=== PATIENT | male | born 1940 | race Caucasian/White ===

== ENCOUNTER 2017-02-06 08:05 | Emergency (ER) ==
[2017-02-06 08:20] VITALS: BP 132/75; TEMP 99.4; BMI 31.4
[2017-02-06 09:03] LABS: ABG BASE EXCESS -3 (-2.0-2.0); ABG HCO3 21.8 (22.0-26.0); ABG PCO2 36.5 mmHg (35-45); ABG PH 7.385 (7.35-7.45); ABG TCO2 23 (22.0-28.0)
[2017-02-06 09:07] LABS: BASOPHILS % (AUTO) 0.4 % (0.0-3.0); EOSINOPHILS # (AUTO) 0.1 K/ul (0.0-0.7); EOSINOPHILS % (AUTO) 1.1 % (0.0-7.0); HEMATOCRIT 41.4 % (42.0-52.0); HEMOGLOBIN 14.6 g/dl (14.0-18.0); IMMATURE GRANULOCYTE % (AUTO) 0.3 % (0.0-5.0); LYMPHOCYTES # (AUTO) 1.1 K/uL (0.60-3.4); LYMPHOCYTES % (AUTO) 12.3 (10.0-50.0); MEAN CORPUSCULAR HEMOGLOBIN 30.2 pg (27.0-31.0); MEAN CORPUSCULAR HGB CONC 35.3 (31.8-35.4); MEAN CORPUSCULAR VOLUME 85.7 fl (80.0-94.0); MONOCYTES # (AUTO) 0.7 K/uL (0.4-2.0); MONOCYTES % (AUTO) 7.7 (0-10); NEUTROPHILS % (AUTO) 78.2; PLATELET COUNT 179 10^3/uL (140-440); RED BLOOD COUNT 4.83 10^6/ul (4.70-6.10); WHITE BLOOD COUNT 8.92 K/ul (4.2-10.2)
[2017-02-06 09:33] LABS: ALBUMIN 4.2 g/dL (3.4-5.0); ALBUMIN/GLOBULIN RATIO 1.27; ANION GAP 16.8; BILIRUBIN,TOTAL 1.1 mg/dL (0.00-1.20); BUN/CREATININE RATIO 11.81; CALCIUM 9.9 mg/dL (8.2-10.2); CREATININE 1.27 mg/dL (0.60-1.10); POTASSIUM 3.8 mmol/L (3.5-5.1); TOTAL PROTEIN 7.5 g/dL (5.8-8.1); TROPONIN I 0.015 ng/ml (0.0000-0.4000)
--- NOTE | 2017-02-06 09:36 | CT ---
EXAM: CT chest without contrast. HISTORY: Cough, chest pain. COMPARISON: 09/05/2012. TECHNIQUE: Multiple axial images of the chest were obtained without intravenous contrast. Images w ere reformatted in the sagittal and coronal planes. FINDINGS: There has been previous CABG. Heart size is normal. There is no pericardial effusion. Atherosclerotic calcifications present. Evaluation for lymphadenopathy is limited by lack of intrav enous contrast. There is no convincing evidence for lymphadenopathy. Bilateral gynecomastia noted. Mild emphysematous changes present in both lungs. Calcified granulomatous changes are present. No consolidation, pleural effusion or pneumothorax identified. Small hiatal hernia suggested. No acute abnormality identified in the upper abdomen. Degenerative changes present in the spine. IMPRESSION: 1. No acute cardiopulmonary process. 2. Mild emphysema.
[2017-02-06] MEDS ORDERED: DECADRON 4 MG/ML SDV IM STA (09:58)
--- NOTE | 2017-02-06 10:01 | ED.PDOC ---
General ED Provider: Dr. JACQUES HUNG Chief Complaint: Respiratory Complaint Stated Complaint: COUGH Time Seen by Physician: 08:00 Mode of Arrival: Walk-In Information Source: Patient Exam Limitations: No limitations Primary Care Provider: LEONEL MONTGOMERY Nursing and Triage Documentation Reviewed and Agree: Yes Respiratory Complaint Exam - Respiratory Complaint/Exam Symptoms Are: Resolved Timing: Intermittent Initial Severity: Mild Current Severity: None Location: Chest Character: Reports: Non-productive cough Aggravating: Reports: None Associated Signs and Symptoms: Denies: Rapid breathing, Dyspnea, Fever, Chills, Chest pain, Pleuritic chest pain, Wheezing, Hemoptysis, Dizziness, Calf pain, Calf swelling, Edema, URI, Nasal congestion, Hoarseness, Sinus discomfort, Vomiting, Sore throat, Weight loss, Decreased oral intake, Increased thirst, Increased appetite, Increased urination Related History: Reports: Similar episode History of Healthcare-Acquired Pneumonia: No Related Surgical History: Reports: None Pseudomonas Risk Factors: Reports: Chronic Lung Disease Tuberculosis Risk Factors: Reports: Chronic Resp. Faliure Status Asthmaticus Risk Factors: Reports: None Home Oxygen Use: No Recent Stress Test: No Recent Echo/LV Function: No Current Antibiotic Use: No Current Asthma Medication Use: No Respiratory Distress: None Inadequate Respiratory Effort: No Dysphagia Present: No Stridor Present: No JVD Present: No Accessory Muscle Use: No Retractions: Not Present Diminished Breath Sounds: No Sinus Tenderness: None Differential Diagnoses: Pneumonia, Bronchitis Non-Traumatic Chest Pain Syncope: EKG Performed Review of Systems - Review Of Systems Constitutional: Reports: Malaise Eyes: Reports: No symptoms Ears, Nose, Mouth, Throat: Reports: No symptoms Respiratory: Reports: Cough Cardiac: Reports: No symptoms GI: Reports: No symptoms : Reports: No symptoms Musculoskeletal: Reports: No symptoms Skin: Reports: No symptoms Neurological: Reports: No symptoms Endocrine: Reports: No symptoms Hematologic/Lymphatic: Reports: No symptoms All Other Systems: Reviewed and Negative Past Medical History - Past Medical History Previously Healthy: Yes Endocrine: Reports: Hypothyroid, Dyslipidemia Cardiovascular: Reports: None Respiratory: Reports: COPD Hematological: Reports: None Gastrointestinal: Reports: GERD Genitourinary: Reports: None Neuro/Psych: Reports: None Musculoskeletal: Reports: None Cancer: Reports: None - Surgical History General Surgical History: Reports: None - Family History Family History: Reports: None - Social History Smoking Status: Former smoker Hx Substance Use: No Alcohol Screening: None Physical Exam - Physical Exam Appearance: Well-appearing, No pain distress, Well-nourished Eyes: YASMIN, EOMI, Conjunctiva clear ENT: Ears normal, Nose normal, Oropharynx normal Respiratory: Airway patent, Breath sounds clear, Breath sounds equal, Respirations nonlabored Cardiovascular: RRR, Pulses normal, No rub, No murmur GI/: Soft, Nontender, No masses, Bowel sounds normal, No Organomegaly Musculoskeletal: Normal strength, ROM intact, No edema, No calf tenderness Skin: Warm, Dry, Normal color Neurological: Sensation intact, Motor intact, Reflexes intact, Cranial nerves intact, Alert, Oriented Psychiatric: Affect appropriate, Mood appropriate Interpretation - Radiology Interpretation Radiology Interpretation By: Radiologist Radiology Results: No acute changes Exam Interpreted: CT Scan Critical Care Note - Critical Care Note Total Time (mins): 0 Course - Course Hematology/Chemistry: 02/06/17 09:00 02/06/17 09:00 Orders, Labs, Meds: Lab Review 02/06/17 02/06/17 08:38 09:00 WBC 8.92 RBC 4.83 Hgb 14.6 Hct 41.4 L MCV 85.7 MCH 30.2 MCHC 35.3 RDW Coeff of Lewis 12.0 Plt Count 179 Immature Gran % (Auto) 0.3 Neut % (Auto) 78.2 Lymph % (Auto) 12.3 [place] % (Auto) 7.7 Eos % (Auto) 1.1 Baso % (Auto) 0.4 Immature Gran # (Auto) 0.0 Neut # 7.0 H Lymph # 1.1 [place] # 0.7 Eos # 0.1 Baso # 0.0 Puncture Site Rb O2 Saturation 95.0 ABG pH 7.385 ABG pCO2 36.5 ABG pO2 77.0 L ABG HCO3 21.8 L ABG Total CO2 23 ABG Base Excess -3 L FiO2 % 21.0 Sodium 141 Potassium 3.8 Chloride 106 Carbon Dioxide 22 L Anion Gap 16.8 BUN 15 Creatinine 1.27 H Estimated GFR (MDRD) 55.00 BUN/Creatinine Ratio 11.81 Glucose 105 Lactic Acid 13.1 Calcium 9.9 Total Bilirubin 1.10 AST 22 ALT 33 Alkaline Phosphatase 39 L Total Creatine Kinase 51 Troponin I 0.0150 Total Protein 7.5 Albumin 4.2 Globulin 3.3 Albumin/Globulin Ratio 1.27 Procalcitonin < 0.05 Orders Category Date Time Status ABG DRAW REQUEST Stat CARDIO 02/06/17 08:38 Completed EKG-(ED ONLY) Stat CARDIO 02/06/17 08:37 Completed ABG Stat LAB 02/06/17 08:38 Completed BLOOD CULTURE Stat LAB 02/06/17 09:00 Received CBC W/ AUTO DIFF Stat LAB 02/06/17 09:00 Completed COMPREHENSIVE METABOLIC PANEL Stat LAB 02/06/17 09:00 Completed CREATINE KINASE Stat LAB 02/06/17 09:00 Completed LACTIC ACID Stat LAB 02/06/17 09:00 Completed PROCALCITONIN Stat LAB 02/06/17 09:00 Completed TROPONIN I Stat LAB 02/06/17 09:00 Completed Dexamethasone 4 mg/ml Inj [Decadron 4 mg/ml Sdv] MEDS 02/06/17 09:58 Stat 4 mg IM ONCE STA CT CHEST W/O CONTRAST Stat RADS 02/06/17 08:37 Completed Medications Generic Name Dose Route Start Last Admin Trade Name Freq PRN Reason Stop Dose Admin Dexamethasone Sodium Phosphate 4 mg 02/06/17 09:58 Decadron 4 Mg/Ml Sdv IM 02/06/17 09:59 ONCE STA Vital Signs: Temp Pulse Resp BP Pulse Ox 02/06/17 08:06 99.4 F 70 20 132/75 93 L Departure - Departure Time of Disposition: 10:00 Disposition: HOME SELF-CARE Discharge Problem: Cough Instructions: Chronic Cough (ED) Condition: Good Pt referred to PMD for follow-up: Yes Additional Instructions: Please call your Family Physician as soon as possible to schedule a follow-up appointment. Allergies/Adverse Reactions: Allergies No Known Allergies Allergy (Verified 02/06/17 08:16) Home Medications: Ambulatory Orders Amlodipine Besylate [Norvasc] 10 mg PO BEDTIME 05/13/15 Docusate Sodium [Stool Softener] 100 mg PO DIRECTED PRN 05/13/15 Fenofibrate 160 mg PO DAILY 05/13/15 Ferrous Sulfate [Iron] 325 mg PO BID 05/13/15 Hydrocodone/Acetaminophen [Hydrocodon-Acetaminoph 7.5-325] 1 tab PO TID PRN 03/18 Levothyroxine Sodium [Synthroid] 75 mcg PO QDAC 05/13/15 Lorazepam [Ativan] 1 mg PO BEDTIME 05/13/15 Lysine HCl [l-Lysine] 500 mg PO BID 05/13/15 Metoprolol Tartrate [Lopressor] 100 mg PO BID 05/13/15 [place]-3 Fatty Acids/Fish Oil [Fish Oil 1,000 mg Capsule] 2,000 mg PO BID Tamsulosin HCl [Flomax] 0.4 mg PO BEDTIME 05/13/15 Ezetimibe [Zetia] 1 tab PO EVERY OTHER DAY 05/14/15 Aspirin 81 mg PO DAILY #30 tab-cap 04/14/16 Vitamin E Mixed [Vitamin E] 400 unit PO DAILY tab-cap 04/14/16 Atorvastatin Calcium [Lipitor] 40 mg PO DAILY 02/06/17 Nitroglycerin [Nitrostat] 0.4 mg SL Q5MIN X 3 DOSES PRN 02/06/17
== END 2017-02-06 10:15 | disposition home or self-care (01) ==
LOC: ED 08:05
DX: R05 Cough (principal); E78.5 Hyperlipidemia, unspecified; E03.9 Hypothyroidism, unspecified; J44.9 Chronic obstructive pulmonary disease, unspecified; K21.9 Gastro-esophageal reflux disease without esophagitis; Z79.899 Other long term (current) drug therapy
CPT/HCPCS: 36415; 80053; 82550; 82803; 83605; 84145; 84484; 85025; 87040; 93005; 93010; 96372; 99283

== ENCOUNTER 2017-03-30 08:52 | Outpatient (CLI) ==
--- NOTE | 2017-03-30 10:29 | DI ---
EXAM: Double contrast esophagram. History: Dysphagia. Technique: Patient was given the gas crystals. Patient was then given oral barium and multiple spot films of the esophagus and gastroesophageal junction were obtained in various projections. Findings: The caliber of the esophagus is within normal limits. No mucosal lesions or filling defects identifi ed. Diffuse irregular esophageal contractions were identified which did cause holdup of the contrast material. No hiatal hernia identified. Gastroesophageal reflux was seen. Impression: 1. Diffuse esophageal spasm. 2. Gastroesophageal reflux.
== END 2017-03-30 08:53 | disposition home or self-care (01) ==
LOC: RAD 08:52
PROVIDERS: ATTEND Nurse Practitioner Family
DX: R13.10 Dysphagia, unspecified (principal)

== ENCOUNTER 2017-04-24 07:37 | Day surgery (SDC) ==
[2017-04-24] MEDS ORDERED: VERSED ONE (09:17)
[2017-04-24] MEDS ORDERED: LIDOCAINE HCL 2% LUER-JET ONE (09:17)
[2017-04-24] MEDS ORDERED: DIPRIVAN 20 ML VIAL IVP ONE (09:17)
[2017-04-24 10:24] VITALS: BP 136/75; TEMP 98.1
--- NOTE | 2017-04-24 15:31 | OP ---
INDICATIONS FOR PROCEDURE: 76-year-old gentleman presents for endoscopy and colonoscopy exam. He has intermittent dysphagia, states mostly to liquids. He also has history of adenomatous polyps with his last colonoscopy three years ago. He presents for endoscopy and colonoscopy exam. MEDICATIONS: SEE ANESTHESIA NOTES. PROCEDURE: 1. ENDOSCOPY, MONEGASQUE DILATATION 2. COLONOSCOPY, SNARE POLYPECTOMY REPORT: The risks, benefits, alternatives and limitations were discussed in detail with the patient. Informed consent was obtained. After adequate sedation was achieved, the video endoscope was introduced in the posterior pharynx and esophagus under direct vision and easily advanced down to the second portion of the duodenum. I then slowly withdrew. The duodenal mucosa appeared unremarkable as did the duodenal bulb. The antrum and body were relatively unremarkable. The scope was retroflexed to look at the cardia and fundus which was unremarkable. The scope was anteflexed and withdrawn back through the esophagus and this appeared normal. I advanced the scope back down the gastric lumen and placed the guidewire and withdrew the scope. Over the guidewire, I easily passed a 54 Greek Latvian dilator. The patient tolerated the procedure well with stable vital signs and pulse oximetry throughout. The patient's bed was turned. Digital rectal exam revealed good tone, no masses. The colonoscope was introduced into the rectum and advanced under direct visual guidance to the cecum. The cecum was identified by the appendiceal orifice and IC valve. I then slowly withdrew the scope in a circumferential manner examining the mucosa quite carefully. I looked on the proximal and distal side of folds and flexures as best as possible. I was able to retroflex the scope in the right colon and left colon to increase visualization. In the ascending colon there was a 5 mm sessile polyp. I removed this by snare technique. In the descending area there was a diminutive 4 mm polyp that I destroyed using a snare. There were multiple large and small mouth diverticula scattered throughout the descending and sigmoid colon. On retroflex view of the anal canal there were small internal hemorrhoids. No other abnormalities were noted. The prep was adequate. There was a little bit of retained stool from the diverticulosis scattered throughout but this was washed and suctioned away as best as possible. The withdrawal time was 9 minutes and 2 seconds. The patient tolerated the procedure well with stable vital signs and pulse oximetry throughout. IMPRESSION: 1. NORMAL UPPER ENDOSCOPY EXAM 2. SUCCESSFUL PASSIVE DILATATION OF THE ESOPHAGUS 3. TWO (2) COLON POLYPS REMOVED OR DESTROYED ABOVE 4. COLONIC DIVERTICULOSIS 5. SMALL INTERNAL HEMORRHOIDS RECOMMENDATIONS: 1. Strict reflux precautions. 2. I advised him to make sure he cuts and chews his food well, avoid excessively hot or cold liquids. 3. Await colon polyp pathology, if it is benign as expected, I recommend repeat colonoscopy examination again in 5 years, sooner if signs or symptoms would indicate otherwise. 4. Next, will see back in the office as needed. CC: DR. VALENTINA TORRES
== END 2017-04-24 10:43 | disposition home or self-care (01) ==
LOC: SURG 07:37
PROVIDERS: ATTEND Internal Medicine Gastroenterology
DX: Z09 Encounter for follow-up examination after completed treatment for conditions other than malignant neoplasm (principal); Z86.010 Personal history of colon polyps; D12.2 Benign neoplasm of ascending colon; K63.5 Polyp of colon; K57.30 Diverticulosis of large intestine without perforation or abscess without bleeding; R13.19 Other dysphagia; K64.8 Other hemorrhoids

== ENCOUNTER 2017-08-20 15:09 | Inpatient (IN) ==
[2017-08-20] MEDS ORDERED: NITROSTAT SL PRN ×2 (15:36→16:07)
[2017-08-20] MEDS ORDERED: ATROPINE SULFATE PFS IVP PRN (15:36)
[2017-08-20] MEDS ORDERED: TYLENOL PO PRN (15:36)
[2017-08-20] MEDS ORDERED: VISTARIL INJ IM PRN (15:36)
[2017-08-20] MEDS ORDERED: MORPHINE 4 MG/ML VIAL IVP PRN (15:36)
[2017-08-20 16:02] VITALS: BMI 30.4
[2017-08-20] MEDS: ROCEPHIN 1 GM in SODIUM CHLORIDE 50 ML IV SCH (16:14)
[2017-08-20] MEDS: TUSSIONEX PO SCH ×2 (16:15→21:24)
[2017-08-20] MEDS: SOLU-CORTEF 250 MG IVP SCH ×2 (16:15→21:21)
[2017-08-20] MEDS: ZITHROMAX PO SCH (16:15)
--- NOTE | 2017-08-20 16:23 | DI ---
EXAM: Single view of the chest. History: Cough. Comparison: Chest radiograph 05/25/2016 Findings: Heart size is upper limits of normal. Sternotomy wires. Atherosclerotic vascular calcifi cations. No focal consolidation. No appreciable pleural fluid and no pneumothorax. No acute osseou s abnormalities. Impression: No acute cardiopulmonary process
[2017-08-20] MEDS: PULMICORT 0.5 MG/2 ML NEB SCH (16:51)
[2017-08-20] MEDS: XOPENEX 1.25 MG NEB SCH ×2 (16:55→23:22)
[2017-08-20] MEDS ORDERED: FATTY ACIDS PO SCH (21:00)
[2017-08-20] MEDS ORDERED: NON-FORMULARY MEDICATION (Ferrous Sulfate [Iron] 325 MG) PO SCH (21:00)
[2017-08-20] MEDS ORDERED: NON-FORMULARY MEDICATION (Metoprolol Tartrate [Lopressor] 100 MG) PO SCH (21:00)
[2017-08-20] MEDS ORDERED: NON-FORMULARY MEDICATION (Amlodipine Besylate [Norvasc] 10 MG) PO SCH (21:00)
[2017-08-20] MEDS ORDERED: OMEGA PO SCH (21:00)
[2017-08-20] MEDS ORDERED: [UNRECOGNIZED DRUG - OTHER] PO SCH (21:00)
[2017-08-20] MEDS ORDERED: FISH OIL PO SCH (21:00)
[2017-08-20] MEDS: FLOMAX PO SCH (21:21)
[2017-08-20] MEDS: OMEGA-3 FISH OIL PO SCH (21:21)
[2017-08-20] MEDS: ATIVAN PO SCH (21:23)
[2017-08-20] MEDS: NORVASC PO SCH (21:24)
[2017-08-20] MEDS: FERROUS SULFATE PO SCH (21:24)
[2017-08-20] MEDS: LOPRESSOR PO SCH (21:24)
[2017-08-20] MEDS: LYSINE HCL 500 MG PO SCH (21:24)
[2017-08-21] MEDS: NORCO 7.5-325 PO PRN ×2 (03:10→21:27)
[2017-08-21] MEDS: PULMICORT 0.5 MG/2 ML NEB SCH ×2 (05:15→17:02)
[2017-08-21] MEDS: XOPENEX 1.25 MG NEB SCH ×4 (05:15→22:45)
[2017-08-21] MEDS: SYNTHROID PO SCH (05:54)
[2017-08-21] MEDS: SOLU-CORTEF 250 MG IVP SCH ×3 (06:00→20:11)
[2017-08-21] MEDS ORDERED: ASPIRIN CHEWABLE PO SCH (08:00)
[2017-08-21] MEDS ORDERED: VITAMIN E MIXED 400 UNIT PO SCH (09:00)
[2017-08-21] MEDS ORDERED: NON-FORMULARY MEDICATION (Atorvastatin Calcium [Lipitor] 40 MG) PO SCH (09:00)
[2017-08-21] MEDS: ASPIRIN EC PO SCH (09:33)
[2017-08-21] MEDS: ROCEPHIN 1 GM in SODIUM CHLORIDE 50 ML IV SCH (09:33)
[2017-08-21] MEDS: LOPRESSOR PO SCH ×2 (09:34→21:27)
[2017-08-21] MEDS: FERROUS SULFATE PO SCH ×2 (09:34→21:27)
[2017-08-21] MEDS: LIPITOR PO SCH (09:34)
[2017-08-21] MEDS: ZITHROMAX PO SCH (09:35)
[2017-08-21] MEDS: OMEGA-3 FISH OIL PO SCH ×2 (09:35→21:27)
[2017-08-21] MEDS: VITAMIN E PO SCH (09:35)
[2017-08-21] MEDS: TRIGLIDE PO SCH (09:35)
[2017-08-21] MEDS: TUSSIONEX PO SCH ×2 (09:35→21:27)
[2017-08-21] MEDS: LYSINE HCL 500 MG PO SCH ×2 (09:46→21:28)
[2017-08-21] MEDS: FLOMAX PO SCH (21:27)
[2017-08-21] MEDS: NORVASC PO SCH (21:27)
[2017-08-21] MEDS: ATIVAN PO SCH (21:27)
[2017-08-22] MEDS: PULMICORT 0.5 MG/2 ML NEB SCH (05:12)
[2017-08-22] MEDS: XOPENEX 1.25 MG NEB SCH ×2 (05:12→11:10)
[2017-08-22] MEDS ORDERED: SYNTHROID ONE (05:12)
[2017-08-22] MEDS: SYNTHROID PO SCH (06:49)
[2017-08-22] MEDS: SOLU-CORTEF 250 MG IVP SCH (06:49)
[2017-08-22] MEDS: NORCO 7.5-325 PO PRN (08:00)
[2017-08-22] MEDS: ZITHROMAX PO SCH (08:01)
[2017-08-22] MEDS: OMEGA-3 FISH OIL PO SCH (08:02)
[2017-08-22] MEDS: TRIGLIDE PO SCH (08:02)
[2017-08-22] MEDS: LIPITOR PO SCH (08:02)
[2017-08-22] MEDS: FERROUS SULFATE PO SCH (08:02)
[2017-08-22] MEDS: VITAMIN E PO SCH (08:02)
[2017-08-22] MEDS: ASPIRIN EC PO SCH (08:02)
[2017-08-22] MEDS: LOPRESSOR PO SCH (08:03)
[2017-08-22] MEDS: TUSSIONEX PO SCH (08:04)
[2017-08-22] MEDS ORDERED: ZETIA PO SCH (09:00)
[2017-08-22 10:15] VITALS: BP 142/75; TEMP 97.6
[2017-08-22] MEDS: ROCEPHIN 1 GM in SODIUM CHLORIDE 50 ML IV SCH (10:19)
[2017-08-22] MEDS: LYSINE HCL 500 MG PO SCH (10:28)
--- NOTE | 2017-08-22 11:26 | DS ---
DATE OF SERVICE: 08/22/17 FINAL DIAGNOSIS: 1. ACUTE ASTHMATIC BRONCHITIS 2. COPD 3. PLEURITIC PAIN 4. HYPOTHYROID 5. HYPERTENSION 6. CAD 7. DYSLIPIDEMIA 8. CKD, STAGE 3 9. DJD 10. PROSTATE CANCER 11. ENDOSCOPY WITH DILATATION, APR 2017 12. COLONOSCOPY WITH POLYPS REMOVED, APR 2017 13. CABG, 2000 14. TOTAL KNEE REPLACEMENT, RIGHT DISCHARGE VITAL SIGNS: Temperature 97.6, pulse 59, respiratory rate 16, BP 142/75, pulse ox 98% DISCHARGE INSTRUCTIONS: Followup appointment: Dr. Dobbins on August 28, 2017 at 11:30 a.m. MEDICATIONS AT DISCHARGE: [place] 7.5-325 one tab p.o. t.i.d. p.r.n. Norvasc 10 mg p.o. bedtime VINNIE Aspirin 81 mg p.o. daily with meal VINNIE Lipitor 40 mg p.o. daily VINNIE Zetia 10 mg p.o. every other day VINNIE Triglide 160 mg p.o. daily VINNIE Ferrous Sulfate 324 mg p.o. b.i.d. VINNIE [place] 3 Fish Oil 2000 mg p.o. b.i.d. VINNIE Synthroid 75 mcg p.o. q.d. a.c. VINNIE Ativan 1 mg p.o. bedtime VINNIE Lopressor 100 mg p.o. b.i.d. VINNIE Lysine 500 mg p.o. b.i.d. VINNIE Fosamax 0.8 mg p.o. bedtime VINNIE Vitamin E 400 unit p.o. daily VINNIE Nitrostat 0.4 mg SL q.5 min times three doses p.r.n. Keflex 500 mg p.o. b.i.d. for 10 days Prednisone 10 mg daily for 10 day, oral with food NEW PRESCRIPTIONS: Keflex 500 mg b.i.d. for 10 days Prednisone 10 mg daily for 10 days MEDICATIONS DISCONTINUED: None DIET INSTRUCTIONS: Regular as tolerated ACTIVITY: Gradually resume as tolerated SMOKING: N/A DISEASE SPECIFIC EDUCATION: Bronchitis Medications Appointment HOSPITAL COURSE: This 77-year-old White/ male was hospitalized with acute asthmatic bronchitis treated with Zithromax and Rocephin. Pleuritic pain has subsided. Lungs on auscultation have good air entry. The patient still has hoarseness and sinus drainage. Cardiovascular status is stable. No evidence of CHF. Condition at the time of discharge is stable. The patient will be discharged on antibiotics and steroids. LABS: 08/22/17 04:35: Sodium 141, Potassium 4.0, Chloride 107, Carbon Dioxide 25, Anion Gap 13.0, BUN 22 H, Creatinine 1.06, Estimated GFR (MDRD) 68.00, BUN/ Creatinine Ratio 20.75, Glucose 124 H, Calcium 9.0, Total Bilirubin 0.5, AST 15 , ALT 31, Alkaline Phosphatase 31 L, Total Protein 5.8, Albumin 3.2 L, Globulin 2.6, Albumin/Globulin Ratio 1.23 08/22/17 04:35: WBC 8.27, RBC 4.46 L, Hgb 13.5 L, Hct 38.5 L, MCV 86.3, MCH 30.3 , MCHC 35.1, RDW Coeff of [place] 12.0, Plt Count 169, Immature Gran % (Auto) 3.3, Neut % (Auto) 76.3, Lymph % (Auto) 14.4, [place] % (Auto) 5.9, Eos % (Auto) 0.0, Baso % (Auto) 0.1, Immature Gran # (Auto) 0.3, Neut # (Auto) 6.3, Lymph # (Auto ) 1.2, [place] # (Auto) 0.5, Eos # (Auto) 0.0, Baso # (Auto) 0.0 TIME SPENT: More than 60 minutes. MTDD
--- NOTE | 2017-08-22 11:28 | PN ---
CODING FOR BILLING 08/20/17 LEVEL 5 08/21/17 INTERMEDIATE 08/22/17 DISCHARGE MTDD
--- NOTE | 2017-08-22 13:08 | PCM.PROG ---
Attending Provider: ATTENDING PROVIDER: Dr. LEONEL MONTGOMERY DATE OF SERVICE: 08/22/17 SUBJECTIVE: This 77 year old WHITE/ M was hospitalized 08/20/17 with acute asthmatic bronchitis and COPD. Condition improved. No pleuritic pain. Cardiovascular status is stable. The patient still has sinus drainage, hoarseness of voice but overall improved. REVIEW OF SYSTEMS: CONSTITUTIONAL: No night sweats. No fatigue, malaise, lethargy. No fever or chills. HEENT: Eyes: No visual changes. No eye pain. No eye discharge. ENT: No runny nose. No epistaxis. No sinus pain. No odynophagia. No congestion. RESPIRATORY: No cough, no congestion. No hemoptysis. No shortness of breath. CARDIOVASCULAR: No angina symptoms. No CHF symptoms. No atypical chest pain for CAD. No palpitations. No orthopnea.. GASTROINTESTINAL: No abdominal pain. No nausea or vomiting. No diarrhea or constipation. No hematemesis. No hematochezia. GENITOURINARY: No urgency. No frequency. No dysuria. No hematuria. No obstructive symptoms. No discharge. No pain. No significant abnormal bleeding. MUSCULOSKELETAL: No musculoskeletal pain; no joint swelling. NEUROLOGICAL: Awake, alert, oriented to time, place and person. No headache. No neck pain. No syncope. No seizures. No dizziness. PSYCHIATRIC: Not anxious. No depression. No suicidal thoughts. No homicidal thoughts. SKIN: No rash. No lesions. No wounds. ENDOCRINE: No unexplained weight loss. No weight gain. HEMATOLOGIC/LYMPHATIC: No anemia. No purpura. No petechiae. No prolonged or excessive bleeding. No palpable lymph nodes. PHYSICAL EXAMINATION: GENERAL: The patient is awake, alert and oriented, lying/sitting in bed in no distress. VITAL SIGNS: Temperature 98.3 F, Pulse 59, Respiratory Rate 18, BP 133/72, Pulse Ox 97% HEENT: Head normocephalic, atraumatic. Eyes: Extraocular muscles are intact. Pupils are equal, round and reactive to light and accommodation. Ears: No lesions. Nose appeared normal. Throat: No exudate or erythema. NECK: Supple. No JVD, no carotid bruit. No lymphadenopathy or thyromegaly. LUNGS: Decreased breath sounds. Clear to auscultation. Percussion note normal. Chest symmetrical. HEART: S1, S2, no S3. No murmurs. No cyanosis or clubbing. No ascites. Pulses: Dorsalis pedis and posterior tibial pulses +1 to +2 both sides. ABDOMEN: Soft. Non-tender. Bowel sounds active. No CVA tenderness. No mass felt. EXTREMITIES: No edema. Full range of motion of all extremities, equal. NEUROLOGIC: No focal deficit. Cranial nerves II through XII are grossly intact. No headache, no double vision or headache. SKIN: Warm and dry. Intact. Turgor-normal. LYMPHATIC: No palpable lymph nodes/no lymphedema. MUSCULOSKELETAL: Normal joints with no swelling. Muscle tone is normal. LAB REVIEW: 08/22/17 04:35 08/22/17 04:35 08/22/17 04:35: Sodium 141, Potassium 4.0, Chloride 107, Carbon Dioxide 25, Anion Gap 13.0, BUN 22 H, Creatinine 1.06, Estimated GFR (MDRD) 68.00, BUN/ Creatinine Ratio 20.75, Glucose 124 H, Calcium 9.0, Total Bilirubin 0.5, AST 15 , ALT 31, Alkaline Phosphatase 31 L, Total Protein 5.8, Albumin 3.2 L, Globulin 2.6, Albumin/Globulin Ratio 1.23 08/22/17 04:35: WBC 8.27, RBC 4.46 L, Hgb 13.5 L, Hct 38.5 L, MCV 86.3, MCH 30.3 , MCHC 35.1, RDW Coeff of [place] 12.0, Plt Count 169, Immature Gran % (Auto) 3.3, Neut % (Auto) 76.3, Lymph % (Auto) 14.4, [place] % (Auto) 5.9, Eos % (Auto) 0.0, Baso % (Auto) 0.1, Immature Gran # (Auto) 0.3, Neut # (Auto) 6.3, Lymph # (Auto ) 1.2, [place] # (Auto) 0.5, Eos # (Auto) 0.0, Baso # (Auto) 0.0 ASSESSMENT: Please see below. 1. ACUTE BRONCHITIS 2. ACUTE SINUSITIS 3. PLEURITIC PAIN 4. CORONARY ARTERY DISEASE 5. HYPERTENSION PLAN: 1. Discharge home with steroids and antibiotics 2. Echo before discharge Plan and coordination of the patient's care discussed in the presence of Stock Controller and nurse. CONDITION: Stable SCRIBED BY: WHIT RODRIGUEZ Branch Chief scribed while in presence of service performed by Dr. LEONEL MONTGOMERY on 08/22/17 ([id number])
--- NOTE | 2017-08-22 13:08 | CM.DICTOOL ---
ADMISSION: 08/20/17 15:09 DISCHARGE: AUGUST 22, 2017 DATE OF SERVICE: 08/22/17 FINAL DIAGNOSIS ACUTE ASTHMATIC BRONCHITIS COPD PLEURITIC PAIN HYPOTHYROID HYPERTENSION CAD DYSLIPIDEMIA CKD, STAGE 3 DJD PROSTATE CANCER ENDOSCOPY WITH DILATATION, 2016 COLONOSCOPY WITH POLYPS REMOVED, 2016 CABG, 2001 TKR, RIGHT LAST VITALS Temp Pulse Resp BP Pulse Ox 97.6 F 59 L 16 142/75 H 98 08/22/17 10:00 08/22/17 10:00 08/22/17 10:00 08/22/17 10:00 08/22/17 10:00 TAKE THESE MEDICATIONS Hydrocodone Bitart/Acetaminophen ([place] 7.5-325) 1 tab PO TID PRN PRN Reason: pain Last Admin: 08/22/17 08:00 Dose: 1 tab Amlodipine Besylate (Norvasc) 10 mg PO BEDTIME [facility] Last Admin: 08/21/17 21:27 Dose: 10 mg Aspirin (Aspirin Ec) 81 mg PO DAILYWM [facility] Last Admin: 08/22/17 08:02 Dose: 81 mg Atorvastatin Calcium (Lipitor) 40 mg PO DAILY [facility] Last Admin: 08/22/17 08:02 Dose: 40 mg Ezetimibe (Zetia) 10 mg PO EVERY OTHER DAY [facility] Last Admin: 08/22/17 08:02 Dose: 10 mg Fenofibrate (Triglide) 160 mg PO DAILY [facility] Last Admin: 08/22/17 08:02 Dose: 160 mg Ferrous Sulfate (Ferrous Sulfate) 324 mg PO BID [facility] Last Admin: 08/22/17 08:02 Dose: 324 mg Fish Oil ([place]-3 Fish Oil) 2,000 mg PO BID [facility] Last Admin: 08/22/17 08:02 Dose: 2,000 mg Levothyroxine Sodium (Synthroid) 75 mcg PO QDAC [facility] Last Admin: 08/22/17 06:49 Dose: Not Given Lorazepam (Ativan) 1 mg PO BEDTIME [facility] Last Admin: 08/21/17 21:27 Dose: 1 mg Metoprolol Tartrate (Lopressor) 100 mg PO BID [facility] Last Admin: 08/22/17 08:03 Dose: 100 mg Non-Formulary Medication (Lysine Hcl [L-Lysine]) 500 mg PO BID [facility] Last Admin: 08/22/17 10:28 Dose: Not Given Tamsulosin HCl (Flomax) 0.8 mg PO BEDTIME [facility] Last Admin: 08/21/17 21:27 Dose: 0.8 mg Vitamin E (Vitamin E) 400 unit PO DAILY [facility] Last Admin: 08/22/17 08:02 Dose: 400 unit Nitrostat (nitroglycerin) 0.4 mg SL Q 5 min x3 Doses PRN Last Admin: Keflex 500 mg BID for 10 days oral Last Admin: Prednisone 10 mg daily for 10 days oral with food Last Admin: ALLERGIES No Known Allergies Allergy (Verified 02/06/17 08:16) NEW PRESCRIPTIONS: Keflex 500 mg BID for 10 days Prednisone 10 mg daily for 10 days Medications Discontinued None SMOKING: Not Applicable DISEASE SPECIFIC EDUCATION: Bronchitis Medications Appointment LAB REVIEW: 08/22/17 04:35 08/22/17 04:35 08/22/17 04:35: Sodium 141, Potassium 4.0, Chloride 107, Carbon Dioxide 25, Anion Gap 13.0, BUN 22 H, Creatinine 1.06, Estimated GFR (MDRD) 68.00, BUN/ Creatinine Ratio 20.75, Glucose 124 H, Calcium 9.0, Total Bilirubin 0.5, AST 15 , ALT 31, Alkaline Phosphatase 31 L, Total Protein 5.8, Albumin 3.2 L, Globulin 2.6, Albumin/Globulin Ratio 1.23 08/22/17 04:35: WBC 8.27, RBC 4.46 L, Hgb 13.5 L, Hct 38.5 L, MCV 86.3, MCH 30.3 , MCHC 35.1, RDW Coeff of [place] 12.0, Plt Count 169, Immature Gran % (Auto) 3.3, Neut % (Auto) 76.3, Lymph % (Auto) 14.4, [place] % (Auto) 5.9, Eos % (Auto) 0.0, Baso % (Auto) 0.1, Immature Gran # (Auto) 0.3, Neut # (Auto) 6.3, Lymph # (Auto ) 1.2, [place] # (Auto) 0.5, Eos # (Auto) 0.0, Baso # (Auto) 0.0 PLAN: Discharge home Diet: Regular as tolerated Activity: Gradually resume as tolerated An appointment is scheduled with Dr. Montgomery on August 28 at 11:30 am Mr. Shipley is alert and oriented x 3. He is independent with Activities of Daily Living. He is ambulatory without use of assistive device or staff assistance. No urinary or bowel incontinence is noted. He denies abdominal pain or nausea. Meal intakes are good at 75-100%. No shortness of air noted. Sinus drainage is reported with productive cough at times due to sinus drainage. Skin is intact and free of decubitus ulcers. LEONEL MONTGOMERY MD
--- NOTE | 2017-08-24 08:09 | ECHO2D ---
Date of Exam: 08/22/17 Ordering Physician: DR. LEONEL MONTGOMERY Room #: 107 Reason for Echo: CHEST PAIN, CAD, TRIPLE BYPASS, HYPERTENSION M-Mode Normal Adult Results LV Dimensions Normal Adult Results AoV Opening excursions >1.6 >1.6 LVEDD-base- 3.5-5.8 5.0 Ao root dimensions 2.0-3.7 4.1 LVESD-base- 3.1-4.6 L. Atrium dimensions 1.9-3.8 4.2 Post. Wall thickness 0.8-1.1 1.5 IV septum (thickness) 0.7-1.2 1.4 Post. Wall excursion 0.72-1.3 NORMAL Septal motion NORMAL Systolic motion R. Ventricular cavity 1.5-2.0 NORMAL LVEF 60% 62% Paradoxical septal wall motion NORMAL 2-D : ENLARGED LEFT ATRIAL CAVITY--NORMAL LEFT VENTRICULAR CONTRACTILITY-- NORMAL VALVES, NO EFFUSION, NO THROMBUS M-MODE: MV: NORMAL AV: NORMAL TV: NORMAL PV: CHAMBER SIZE: ENLARGED LEFT ATRIAL CAVITY WALL MOTION: NORMAL PERICARDIUM: NORMAL INTERPRETATION: 1. LEFT VENTRICULAR HYPERTROPHY WITH ENLARGED LEFT ATRIAL CAVITY 2. NORMAL LEFT VENTRICULAR CONTRACTILITY 3. NORMAL VALVES MTDD
--- NOTE | 2017-09-11 14:16 | PN ---
DATE OF SERVICE: 08/21/17 SUBJECTIVE: The patient was examined while sitting up in bed. He has been resting comfortably. Cough is somewhat improved. He is still somewhat wheezy and short of breath but feeling better. He has been eating well. Up and about walking. REVIEW OF SYSTEMS: CONSTITUTIONAL: No night sweats. Fatigue. No fever or chills. HEENT: Eyes: No visual changes. No eye pain. No eye discharge. ENT: No runny nose. No epistaxis. No sinus pain. No sore throat. No odynophagia. No congestion. RESPIRATORY: Cough and wheezing, no congestion. No hemoptysis. No shortness of breath. CARDIOVASCULAR: No angina symptoms. No CHF symptoms. No atypical chest pain for CAD. No palpitations. No orthopnea. GASTROINTESTINAL: No abdominal pain. No nausea or vomiting. No diarrhea or constipation. No hematemesis. No hematochezia. GENITOURINARY: No urgency. No frequency. No dysuria. No hematuria. No obstructive symptoms. No discharge. No pain. No significant abnormal bleeding. MUSCULOSKELETAL: No musculoskeletal pain; no joint swelling. NEUROLOGICAL: No headache. No neck pain. No syncope. No seizures. No dizziness. PSYCHIATRIC: Not anxious. No depression. No suicidal thoughts. No homicidal thoughts. SKIN: No rash. No lesions. No wounds. ENDOCRINE: No unexplained weight loss. No weight gain. HEMATOLOGIC/LYMPHATIC: No anemia. No purpura. No petechiae. No prolonged or excessive bleeding. No palpable lymph nodes. PHYSICAL EXAMINATION: GENERAL: The patient is alert and oriented times three. HEENT: Head normocephalic, atraumatic. Eyes: Extraocular muscles are intact. Pupils are equal, round and reactive to light and accommodation. Ears: No lesions. Nose appeared normal. Throat: No exudate or erythema. NECK: Supple. No JVD, no carotid bruit. No lymphadenopathy or thyromegaly. LUNGS: Diminished breath sounds bilaterally with faint expiratory wheeze. Clear to auscultation. Percussion note normal. Chest symmetrical. HEART: S1, S2, no S3. No murmurs. No cyanosis or clubbing. No ascites. Pulses: Dorsalis pedis and posterior tibial pulses +1 to +2 both sides. ABDOMEN: Soft. Nontender. Bowel sounds active. No CVA tenderness. No mass felt. EXTREMITIES: No edema. Full range of motion of all extremities, equal. NEUROLOGIC: No focal deficit. Cranial nerves II through XII are grossly intact. No headache, no double vision or headache. SKIN: Not dry. Intact. Turgor - normal. LYMPHATIC: No palpable lymph nodes/no lymphedema. MUSCULOSKELETAL: Normal joints with no swelling. Muscle tone is normal. LABS: WBC 5.60, hgb 14.1, hct 40.9, plt count 139, Sodium 141, potassium 3.8, chloride 106, bicarb 27, BUN 22, creatinine 1.37 and glucose 78. ASSESSMENT: 1. Acute bronchitis 2. Shortness of breath improved 3. Chronic kidney disease which is stable PLAN: 1. Will continue IV antibiotics and IV steroids 2. Continue Xopenex NEBS treatment Q 6 hours scheduled 3. Encouraged to be up and about 4. O2 as needed. TIME SPENT: More than 30 minutes. Plan and coordination of the patient's care discussed in the presence of nurse. MELISSA
--- NOTE | 2017-09-14 14:42 | HP ---
DATE OF SERVICE: 08/20/17 REASON FOR HOSPITALIZATION/HISTORY OF PRESENT ILLNESS: One week ago with cough/congestion-been on Keflex/Prednisone. Can't breath at night, wheezing. Complaint of cough-dry, No symptoms CHD/CAD. Wheezing at night. PAST MEDICAL HISTORY: Cancer prostate COPD CAD Cardiac Hypertension Dyslipidemia Hypothyroidism DJD (Sever) Chronic kidney disease stage 3 Pulmonary fibrosis with esophageal stricture. PAST SURGICAL HISTORY: Right knee replacement CABG's x3 2001 Hernia Tonsils REVIEW OF SYSTEMS: CONSTITUTIONAL: No fever, Fatigue. HEENT: Sinus drainage, no sore throat. RESPIRATORY: Cough, no congestion. CARDIOVASCULAR: Atypical chest pain for coronary artery disease, right sided. No angina, CHF symptoms, palpitations or shortness of breath. GASTROINTESTINAL: No melena or abdominal pain. No GERD. GENITOURINARY: No hematuria, no prostatism, no polyuria. WINDSURFING INSTRUCTOR: No blackout, no dizziness, no headache, no double vision. MUSCULOSKELETAL: Osteoarthritis pain, no joint swelling. ENDOCRINE: No weight loss, no weight gain. SKIN: Not dry, no rash. PSYCHIATRIC: Anxious, no depression, no suicidal thoughts, no homicidal thoughts. SOCIAL HISTORY: Marital Status: . Alcohol Usage: No. Tobacco Usage: No. FAMILY HISTORY: Father Mother Brother 1 Sister 1 living MEDICATIONS: Ativan 1mg PO daily PRN Flomax 0.4mg PO daily 1/2 hour following the same meal each day Amlodipine 10mg PO daily Metoprolol Tartrate 100mg PO two times per day with meals Hydrocodone 7.5-325 Po three times per day as needed for pain PRN Atorvastatin 40mg PO daily Aspirin 325mg PO daily Ferrous sulfate 325mg PO two times per day Fishoil 1000 take two tablet by two times per day L-Lysine 500mg Fenofibrate 160mg take one tablet PO daily Levothyroxine 75mcg take one tablet PO daily Multivitamin Omeprazole 20mg PO daily before meal Vitamin B ALLERGIES: No known drug allergies. PHYSICAL EXAMINATION: V/S: Pulse 68, blood pressure 118/70, temperature 98.6, oxygen saturation 98%. GENERAL APPEARANCE: Oriented times three. HEENT: Yellow Drainage. NECK: No JVP, no bruits. RESPIRATORY: Decreased breath sounds with rales on left faint with expiratory wheeze. CARDIOVASCULAR: S1, S2, no S3, no murmurs. No cyanosis, clubbing. No ascites. GI/ABDOMEN: No tenderness. Bowel sounds are active. EXTREMITIES: edema, pulses +1, equal. WINDSURFING INSTRUCTOR: Deep tendon reflexes, sensory, motor and gait all normal. RECTAL: 11/13 Dr. Jorge/PROSTATE: Dr. Deleon follows. ASSESSMENT: 1. Acute Asthmatic bronchitis 2. COPD 3. Pleuritic pain 4. CA Prostate 5. COPD 6. CAD 7. CABG's 2000 8. Hypertension 9. Dyslipidemia 10.Hypothyroidism 11.Hypothyroidism 12.DJD(severe) 13.Chronic kidney disease 3 14.History of Pulmonary fibrosis 15.History of esophageal stricture PLAN: 1. Admit 2. Routine telemetry orders 3. Diet regular 4. BNP TSH 5. Solu-Cortef 125mg IV now and Q 8 hourly 6. Xopenex Q 6 hours 7. Pulmicort twice a day 8. Tussionex one teaspoon Po now and twice a day 9. Rocephin 1 gram IV piggyback today and Q AM 10.Zithromax 500mg PO daily x 3 days 11.Continue all home medications 12.Echo 13.Daily CBC and CMP TIME SPENT: More than 70 minutes. MTDD
== END 2017-08-22 11:40 | disposition home or self-care (01) | DRG 202 ==
LOC: MEDSURG A 15:09
PROVIDERS: ADMIT Internal Medicine; ATTEND Internal Medicine
DX: J20.9 Acute bronchitis, unspecified (principal); J44.0 Chronic obstructive pulmonary disease with (acute) lower respiratory infection; R07.81 Pleurodynia; R06.02 Shortness of breath; I10 Essential (primary) hypertension; I25.10 Atherosclerotic heart disease of native coronary artery without angina pectoris; E78.5 Hyperlipidemia, unspecified; I12.9 Hypertensive chronic kidney disease with stage 1 through stage 4 chronic kidney disease, or unspecified chronic kidney disease; N18.9 Chronic kidney disease, unspecified; E03.9 Hypothyroidism, unspecified; M19.90 Unspecified osteoarthritis, unspecified site; Z85.46 Personal history of malignant neoplasm of prostate; Z95.1 Presence of aortocoronary bypass graft; Z79.899 Other long term (current) drug therapy
CPT/HCPCS: 36415; 80053; 81001; 82550; 83880; 84443; 84484; 85025; 93005; 93010; 94640; 99223; 99232; 99239

== ENCOUNTER 2017-12-14 10:14 | Outpatient (CLI) | payer OTHER ==
--- NOTE | 2017-12-14 14:11 | DI ---
EXAM: PA and lateral views of the chest HISTORY: Cough. COMPARISON: Chest x-ray 08/20/2017 and multiple priors FINDINGS: The cardiomediastinal silhouette is unchanged with intact sternotomy wires. There is no p neumothorax or pleural effusion. There is no consolidation, nodule or mass. The osseous structures demonstrate degenerative disease of the spine. IMPRESSION: No acute cardiopulmonary process
== END 2017-12-14 10:15 | disposition home or self-care (01) ==
LOC: RAD 10:14
PROVIDERS: ATTEND Internal Medicine
DX: R05 Cough (principal); J11.1 Influenza due to unidentified influenza virus with other respiratory manifestations

== ENCOUNTER 2020-08-12 14:07 | Inpatient (IN) ==
[2020-08-12] MEDS ORDERED: ATROPINE SULFATE PFS IVP PRN (14:23)
[2020-08-12] MEDS ORDERED: NITROSTAT SL PRN (14:23)
[2020-08-12 14:47] LABS: ABG PH 7.56 (7.35-7.45)
[2020-08-12 14:59] LABS: BASOPHILS % (AUTO) 0.3 % (0.0-3.0); EOSINOPHILS # (AUTO) 0.1 K/ul (0.0-0.7); EOSINOPHILS % (AUTO) 0.7 % (0.0-7.0); HEMATOCRIT 47.1 % (42.0-52.0); HEMOGLOBIN 16.6 g/dl (14.0-18.0); IMMATURE GRANULOCYTE # (AUTO) 0.2 (0.0-1.0); IMMATURE GRANULOCYTE % (AUTO) 1.7 % (0.0-5.0); LYMPHOCYTES # (AUTO) 0.9 K/uL (0.60-3.4); LYMPHOCYTES % (AUTO) 8.1 (10.0-50.0); MEAN CORPUSCULAR HEMOGLOBIN 30.8 pg (27.0-31.0); MEAN CORPUSCULAR HGB CONC 35.2 (31.8-35.4); MEAN CORPUSCULAR VOLUME 87.4 fl (80.0-94.0); MONOCYTES # (AUTO) 0.8 K/uL (0.4-2.0); MONOCYTES % (AUTO) 7.1 (0-10); NEUTROPHILS # (AUTO) 9.2 K/ul (2.0-6.9); NEUTROPHILS % (AUTO) 82.1 % (42.2-75.2); PLATELET COUNT 208 10^3/uL (140-440); RDW COEFFICIENT OF VARIATION 12.5 % (11.6-14.8); RED BLOOD COUNT 5.39 10^6/ul (4.70-6.10); WHITE BLOOD COUNT 11.22 K/ul (4.2-10.2)
[2020-08-12 15:02] LABS: BILIRUBIN,URINE 1+ (NEGATIVE); CLARITY,URINE Clear (CLEAR); COLOR,URINE Yellow (YELLOW); GLUCOSE, URINE (UA) Negative (NEGATIVE); KETONES,URINE 1+ (NEGATIVE); LEUKOCYTE ESTERASE ,URINE Negative (NEGATIVE); NITRITE,URINE Positive (NEGATIVE); PH,URINE 5.5 (5-9); PROTEIN,URINE 1+ (NEGATIVE); URINE, BLOOD Negative (NEGATIVE)
[2020-08-12 15:09] LABS: BACTERIA,URINE 3+ (NOT PRESENT); MUCUS,URINE 3+ (NOT PRESENT); SQUAMOUS EPITHELIAL CELL,UR 0-2 (0-5); URINE RBC, MICROSCOPIC 0-2 (0-2); URINE WBC, MICROSCOPIC 0-2 (0-2)
[2020-08-12 15:11] LABS: ALANINE AMINOTRANSFERASE 63.8 U/L (0-50); ALBUMIN 3.71 g/dL (3.5-5.0); ALKALINE PHOSPHATASE 49.5 U/L (56-119); ASPARTATE AMINO TRANSFERASE 43.8 U/L (17-59); BILIRUBIN,TOTAL 1.07 mg/dL (0.2-1.3); BLOOD UREA NITROGEN 25.1 mg/dL (9-20); CALCIUM 8.84 mg/dL (8.4-10.2); CARBON DIOXIDE 27.5 mmol/L (22-30.0); CHLORIDE 101.6 mmol/L (98-107); CREATINE KINASE 24.2 U/L (55-170); CREATININE 1.25 mg/dL (0.60-1.10); POTASSIUM 3.84 mmol/L (3.5-5.1); TOTAL PROTEIN 6.51 g/dL (6.3-8.2)
[2020-08-12 15:22] LABS: TROPONIN I < 0.012 ng/ml (0.0000-0.120)
[2020-08-12 15:40] VITALS: BMI 30.2
[2020-08-12] MEDS: SODIUM CHLORIDE 1,000 ML IV SCH (16:01)
[2020-08-12] MEDS ORDERED: LEVAQUIN 500 MG/100 ML D5W 500 MG/100 ML BAG IV SCH (16:30)
--- NOTE | 2020-08-12 16:51 | DI ---
EXAM: Chest one view HISTORY: Shortness of breath, bilateral pneumonia COMPARISON: 12/14/2017 TECHNIQUE: Single view of the chest was performed FINDINGS: Heart size is upper limits of normal. Normal mediastinal contour. Patchy ground-glass in the right mid to upper lung, minimally the right lung base and within the left lung base. No pleura l effusion or pneumothorax. No acute osseous abnormality. IMPRESSION: Findings suggest bilateral multifocal pneumonia versus atelectasis or scarring.
[2020-08-12] MEDS: LEVAQUIN 750 MG/150 ML D5W 750 MG/150 ML BAG IV SCH (17:24)
[2020-08-12] MEDS: ZINC-220 PO SCH (17:24)
[2020-08-12] MEDS: VITAMIN D PO SCH (17:24)
[2020-08-12] MEDS: SYMBICORT 160-4.5 MCG INHALER IH SCH ×2 (17:24→20:59)
[2020-08-12] MEDS: NORCO 7.5-325 PO PRN ×2 (17:25→21:00)
[2020-08-12] MEDS: FERROUS SULFATE PO SCH (17:25)
[2020-08-12] MEDS: SOLU-CORTEF 250 MG IVP SCH (17:26)
[2020-08-12] MEDS: VENTOLIN HFA (PER PUFF-WITH SPACER) IH SCH (19:12)
[2020-08-12] MEDS: TYLENOL PO PRN (20:02)
[2020-08-12] MEDS: OMEGA-3 FISH OIL PO SCH (20:59)
[2020-08-12] MEDS: NON-FORMULARY MEDICATION (Lysine Hcl 500 MG tablet) PO SCH ×2 (20:59→21:23)
[2020-08-12] MEDS: NORVASC PO SCH (21:00)
[2020-08-12] MEDS: FLOMAX PO SCH (21:00)
[2020-08-12] MEDS: ATIVAN PO SCH (21:00)
[2020-08-12] MEDS ORDERED: FERROUS SULFATE 325 MG PO SCH (21:00)
[2020-08-12] MEDS: TRIGLIDE PO SCH (21:00)
[2020-08-12] MEDS: LOPRESSOR PO SCH (21:00)
[2020-08-12] MEDS ORDERED: NON-FORMULARY MEDICATION (Omega-3 Fatty Acids-Fish Oil [Fish Oil] 1 EACH capsule) PO SCH (21:00)
[2020-08-12 22:50] LABS: CREATINE KINASE 23.7 U/L (55-170)
[2020-08-12 23:03] LABS: TROPONIN I < 0.012 ng/ml (0.0000-0.120)
[2020-08-13] MEDS: VENTOLIN HFA (PER PUFF-WITH SPACER) IH SCH ×3 (04:45→19:40)
[2020-08-13] MEDS: SOLU-CORTEF 250 MG IVP SCH ×4 (04:51→21:03)
[2020-08-13 05:25] LABS: BASOPHILS % (AUTO) 0.2 % (0.0-3.0); EOSINOPHILS % (AUTO) 0.2 % (0.0-7.0); HEMATOCRIT 41.7 % (42.0-52.0); HEMOGLOBIN 14.2 g/dl (14.0-18.0); IMMATURE GRANULOCYTE # (AUTO) 0.1 (0.0-1.0); IMMATURE GRANULOCYTE % (AUTO) 1.5 % (0.0-5.0); LYMPHOCYTES # (AUTO) 0.5 K/uL (0.60-3.4); LYMPHOCYTES % (AUTO) 7.4 (10.0-50.0); MEAN CORPUSCULAR HEMOGLOBIN 30.1 pg (27.0-31.0); MEAN CORPUSCULAR HGB CONC 34.1 (31.8-35.4); MEAN CORPUSCULAR VOLUME 88.3 fl (80.0-94.0); MONOCYTES # (AUTO) 0.4 K/uL (0.4-2.0); MONOCYTES % (AUTO) 6.4 (0-10); NEUTROPHILS # (AUTO) 5.6 K/ul (2.0-6.9); NEUTROPHILS % (AUTO) 84.3 % (42.2-75.2); PLATELET COUNT 158 10^3/uL (140-440); RDW COEFFICIENT OF VARIATION 12.3 % (11.6-14.8); RED BLOOD COUNT 4.72 10^6/ul (4.70-6.10); WHITE BLOOD COUNT 6.61 K/ul (4.2-10.2)
[2020-08-13] MEDS: FERROUS SULFATE PO SCH ×2 (05:35→17:16)
[2020-08-13] MEDS: SODIUM CHLORIDE 1,000 ML IV SCH ×2 (05:35→20:02)
[2020-08-13] MEDS: SYNTHROID PO SCH (05:35)
[2020-08-13 05:38] LABS: ALANINE AMINOTRANSFERASE 44.3 U/L (0-50); ALBUMIN 3.1 g/dL (3.5-5.0); ALKALINE PHOSPHATASE 38.7 U/L (56-119); ASPARTATE AMINO TRANSFERASE 27.6 U/L (17-59); BILIRUBIN,TOTAL 0.81 mg/dL (0.2-1.3); BLOOD UREA NITROGEN 20.6 mg/dL (9-20); CALCIUM 8.28 mg/dL (8.4-10.2); CARBON DIOXIDE 25.8 mmol/L (22-30.0); CHLORIDE 103.4 mmol/L (98-107); CREATININE 0.94 mg/dL (0.60-1.10); GLUCOSE 124.2 mg/dL (74-106); POTASSIUM 4.32 mmol/L (3.5-5.1); SODIUM 134.4 mmol/L (134.5-145); TOTAL PROTEIN 5.57 g/dL (6.3-8.2)
[2020-08-13] MEDS: NORCO 7.5-325 PO PRN ×3 (05:41→21:04)
[2020-08-13 07:55] LABS: ABG PH 7.49 (7.35-7.45)
[2020-08-13 08:01] LABS: PROTHROMBIN TIME 11.4 SEC (9.3-11.0)
[2020-08-13 08:23] LABS: TROPONIN I < 0.012 ng/ml (0.0000-0.120)
[2020-08-13] MEDS ORDERED: VITAMIN E MIXED 400 UNIT PO SCH (09:00)
[2020-08-13] MEDS: LOPRESSOR PO SCH ×2 (09:11→21:04)
[2020-08-13] MEDS: LEVAQUIN 750 MG/150 ML D5W 750 MG/150 ML BAG IV SCH (09:11)
[2020-08-13] MEDS: SYMBICORT 160-4.5 MCG INHALER IH SCH ×2 (09:11→21:06)
[2020-08-13] MEDS: ASPIRIN CHEWABLE PO SCH (09:11)
[2020-08-13] MEDS: VITAMIN E PO SCH (09:11)
[2020-08-13] MEDS: PEPCID PO SCH ×2 (09:11→17:17)
[2020-08-13] MEDS: ZINC-220 PO SCH (09:11)
[2020-08-13] MEDS: VITAMIN D PO SCH (09:11)
[2020-08-13] MEDS: OMEGA-3 FISH OIL PO SCH ×2 (09:12→21:05)
[2020-08-13] MEDS: LIPITOR PO SCH (09:12)
[2020-08-13] MEDS: NON-FORMULARY MEDICATION (Lysine Hcl 500 MG tablet) PO SCH ×2 (09:16→21:05)
--- NOTE | 2020-08-13 09:16 | PCM.PROG ---
Attending Provider: ATTENDING PROVIDER: Dr. LEONEL MONTGOMERY This patient is seen with Debi Munguia, Nurse Practitioner. DATE OF SERVICE: 08/13/20 SUBJECTIVE: This 80 year old /WHITE M was hospitalized 08/12/20. The patient is resting comfortably. He reports shortness of breath is somewhat better this morning. He ate well yesterday. He is still very weak. Urine showed UTI. Chest x-ray still shows pneumonia. Today is day 21 after positive Covid on 07/23/20. REVIEW OF SYSTEMS: CONSTITUTIONAL: Weakness. No night sweats. No fatigue, malaise, lethargy. No fever or chills. HEENT: Eyes: No visual changes. No eye pain. No eye discharge. ENT: No runny nose. No epistaxis. No sinus pain. No odynophagia. No congestion. RESPIRATORY: Positive for cough and shortness of breath. No hemoptysis. CARDIOVASCULAR: No angina symptoms. No CHF symptoms. No atypical chest pain for CAD. No palpitations. No orthopnea.. GASTROINTESTINAL: No abdominal pain. No nausea or vomiting. No diarrhea or constipation. No hematemesis. No hematochezia. GENITOURINARY: No urgency. No frequency. No dysuria. No hematuria. No obstructive symptoms. No discharge. No pain. No significant abnormal bleeding. MUSCULOSKELETAL: No musculoskeletal pain; no joint swelling. NEUROLOGICAL: Awake, alert, oriented to time, place and person. No headache. No neck pain. No syncope. No seizures. No dizziness. PSYCHIATRIC: Not anxious. No depression. No suicidal thoughts. No homicidal thoughts. SKIN: No rash. No lesions. No wounds. ENDOCRINE: No unexplained weight loss. No weight gain. HEMATOLOGIC/LYMPHATIC: No anemia. No purpura. No petechiae. No prolonged or excessive bleeding. No palpable lymph nodes. PHYSICAL EXAMINATION: GENERAL: The patient is awake, alert and oriented, lying/sitting in bed in no distress. VITAL SIGNS: Temperature 97.4 F, Pulse 75, Respiratory Rate 18, BP 118/67, Pulse Ox 97% HEENT: Head normocephalic, atraumatic. Eyes: Extraocular muscles are intact. Pupils are equal, round and reactive to light and accommodation. Ears: No lesions. Nose appeared normal. Throat: No exudate or erythema. NECK: Supple. No JVD, no carotid bruit. No lymphadenopathy or thyromegaly. LUNGS: Diminished breath sounds. Clear to auscultation. Percussion note normal. Chest symmetrical. HEART: S1, S2, no S3. No murmurs. No cyanosis or clubbing. No ascites. Pulses: Dorsalis pedis and posterior tibial pulses +1 to +2 both sides. ABDOMEN: Soft. Non-tender. Bowel sounds active. No CVA tenderness. No mass felt. EXTREMITIES: No edema. Full range of motion of all extremities, equal. NEUROLOGIC: No focal deficit. Cranial nerves II through XII are grossly intact. No headache. No double vision. SKIN: Not dry. Intact. Turgor-normal. LYMPHATIC: No palpable lymph nodes/no lymphedema. MUSCULOSKELETAL: Normal joints with no swelling. Muscle tone is normal. LAB REVIEW: 08/13/20 05:20 08/13/20 05:20 08/13/20 07:43: Puncture Site R rad, Base Excess -2.0, O2 Saturation 95.9, ABG pH 7.49 H, ABG pCO2 28.0 L, ABG pO2 74.0 L, ABG HCO3 21.3, ABG Total CO2 22.2, Yogesh Test Y, Hemoglobin 1.0, Oxyhemoglobin 93.8 L, Carboxyhemoglobin 2.7 H, Total Hemoglobin 14.7, O2 Delivery Device Cannula, Oxygen Liter Flow 2.00 08/13/20 05:20: Sodium 134.4 L, Potassium 4.32, Chloride 103.4, Carbon Dioxide 25.8, Anion Gap 9.52, BUN 20.6 H, Creatinine 0.94, Estimated GFR (MDRD) 77.00, BUN/Creatinine Ratio 21.91, Glucose 124.2 H, Calcium 8.28 L, Total Bilirubin 0.81, AST 27.6, ALT 44.3, Alkaline Phosphatase 38.7 L, Total Protein 5.57 L, Albumin 3.10 L, Globulin 2.47, Albumin/Globulin Ratio 1.25 08/13/20 05:20: WBC 6.61, RBC 4.72, Hgb 14.2, Hct 41.7 L, MCV 88.3, MCH 30.1, MCHC 34.1, RDW Coeff of [place] 12.3, Plt Count 158, Immature Gran % (Auto) 1.5, Neut % (Auto) 84.3 H, Lymph % (Auto) 7.4 L, [place] % (Auto) 6.4, Eos % (Auto) 0.2, Baso % (Auto) 0.2, Neut # (Auto) 5.6, Lymph # (Auto) 0.5 L, [place] # (Auto) 0.4, Eos # (Auto) 0.0, Baso # (Auto) 0.0, Immature Gran # (Auto) 0.1 08/12/20 22:30: Total Creatine Kinase 23.7 L, Troponin I < 0.012 08/12/20 14:58: Sodium 137.0, Potassium 3.84, Chloride 101.6, Carbon Dioxide 27.5, Anion Gap 11.74, BUN 25.1 H, Creatinine 1.25 H, Estimated GFR (MDRD) 56.00, BUN/Creatinine Ratio 20.08, Glucose 137.0 H, Calcium 8.84, Total Bilirubin 1.07, AST 43.8, ALT 63.8 H, Alkaline Phosphatase 49.5 L, Total Creatine Kinase 24.2 L, Troponin I < 0.012, Total Protein 6.51, Albumin 3.71, Globulin 2.80, Albumin/Globulin Ratio 1.32 08/12/20 14:41: Puncture Site L rad, Base Excess 0.2, O2 Saturation 93.7 L, ABG pH 7.56 H*, ABG pCO2 25.0 L, ABG pO2 59.0 L*, ABG HCO3 22.4, ABG Total CO2 23.2, Yogesh Test Y, Hemoglobin 0.9, Oxyhemoglobin 91.8 L, Carboxyhemoglobin 2.8 H, Total Hemoglobin 16.1, FiO2 % 21.0 08/12/20 14:25: WBC 11.22 H, RBC 5.39, Hgb 16.6, Hct 47.1, MCV 87.4, MCH 30.8, MCHC 35.2, RDW Coeff of Lewis 12.5, Plt Count 208, Immature Gran % (Auto) 1.7, Neut % (Auto) 82.1 H, Lymph % (Auto) 8.1 L, [place] % (Auto) 7.1, Eos % (Auto) 0.7, Baso % (Auto) 0.3, Neut # (Auto) 9.2 H, Lymph # (Auto) 0.9, [place] # (Auto) 0.8, Eos # (Auto) 0.1, Baso # (Auto) 0.0, Immature Gran # (Auto) 0.2 08/12/20 14:21: Urine Color Yellow, Urine Clarity Clear, Urine pH 5.5, Ur Specific [place] >=1.030, Urine Protein 1+ H, Urine Glucose (UA) Negative, Urine Ketones 1+ H, Urine Blood Negative, Urine Nitrite Positive H, Urine Bilirubin 1+ H, Urine Urobilinogen 1.0 H, Ur Leukocyte Esterase Negative, Urine Microscopic RBC 0-2, Urine Microscopic WBC 0-2, Ur Squamous Epith Cells 0-2, Urine Bacteria 3+, Urine Mucus 3+ ASSESSMENT: Please see below. 1. Persistent Covid-19 pneumonia. 2. Acute respiratory failure. 3. Dehydration. 4. Generalized weakness. 5. UTI culture pending. 6. Positive Covid on 07/23/20. PLAN: 1. Continue fluids today. 2. Stop fluids tomorrow morning. 3. T4, TSH. Plan and coordination of the patient's care discussed in the presence of Office Assistant and nurse. CONDITION: Stable SCRIBED BY: WHIT RODRIGUEZ Lumber Tripper scribed while in presence of service performed by Dr. Montgomery/Debi Munguia APRN on 08/13/20 (0800)
--- NOTE | 2020-08-13 11:57 | HP ---
DATE OF SERVICE: 08/12/20 REASON FOR HOSPITALIZATION/HISTORY OF PRESENT ILLNESS: 80-year-old male who was in [facility] 07/28 with Covid positive/pneumonia. He is still shortness of breath wearing 02 at home. He went back to ER last week and was negative for Covid but chest x-ray shows bilateral pneumonia, still short of breath, weak. He has lost 17 lbs. PAST MEDICAL HISTORY: Hypothyroidism Dyslipidemia Hypertension B12 deficiency Esophageal stricture Pulmonary fibrosis CA prostate COPD Hyperglycemia PAST SURGICAL HISTORY: CABGs Right knee replacement Stents Hernia surgery times two REVIEW OF SYSTEMS: CONSTITUTIONAL: Fatigue. No fever. HEENT: Sinus drainage, no sore throat. RESPIRATORY: Cough. No hemoptysis. CARDIOVASCULAR: Shortness of breath with exertion. No atypical chest pain for coronary artery disease. No angina, CHF symptoms, palpitations. GASTROINTESTINAL: No melena or abdominal pain. No GERD. GENITOURINARY: No hematuria, no prostatism, no polyuria. OLIVE PITTER: No blackout, no dizziness, no headache, no double vision. MUSCULOSKELETAL: No osteoarthritis pain, no joint swelling. ENDOCRINE: No weight loss, no weight gain. SKIN: Not dry, no rash. PSYCHIATRIC: Not anxious, no depression, no suicidal thoughts, no homicidal thoughts. SOCIAL HISTORY: Tobacco - smoker, four packs per day times 20 years, quit 30 years ago. . No alcohol use. Retired. Two children. FAMILY HISTORY: Father ; mother . One brother. One sister. MEDICATIONS: Lorazepam 1 mg @ h.s. Metoprolol 100 mg b.i.d. Levothyroxine 112 mg Tamsulosin 0.4 mg two at h.s. Amlodipine 10 mg p.o. at bedtime Atorvastatin 40 mg p.o. daily Fenofibrate 160 mg at h.s. L-Lysine 500 mg two b.i.d. [place] 3 2000 mg b.i.d. Vitamin E supplement 400 IU Iron 65 mg b.i.d. ASA 81 mg p.o. q.d [place] 75 mg t.i.d. p.r.n. ALLERGIES: NKDA PHYSICAL EXAMINATION: V/S: Pulse 68, BP 108/58, temperature 98.1, 02 sat 92%. Weight 209 lbs, 2 ozs. Height 6'0". BMI 27.7. GENERAL APPEARANCE: Oriented times three. Pallor dry. HEENT: Normal. NECK: No JVP, no bruits. RESPIRATORY: Severe decreased breath sounds. Lungs are clear. CARDIOVASCULAR: S1, S2, no S3, no murmur. No cyanosis, clubbing. No ascites. GI/ABDOMEN: No tenderness. Bowel sounds are active. EXTREMITIES: No edema, pulses +1, equal. OLIVE PITTER: Deep tendon reflexes, sensory, motor and gait all normal. RECTAL/PROSTATE: Prostate 06/02/20 (less than 0.1). Colonoscopy 2018, Dr. Jorge. ASSESSMENT: 1. Shortness of breath 2. Bilateral pneumonia 3. History of Covid positive, 07/23/20 4. Dehydration History of: 5. Positive for Covid 07/23 6. Covid pneumonia 07/28 7. Left shoulder pain 8. History of esophageal stricture 9. Acute bronchitis 10. History of pulmonary fibrosis 11. CKD 3 - no NSAIDS 12. Borderline hypothyroidism 13. B12 deficiency 14. Right TKR Dr. Armenta 04/20 15. CA prostate, Dr. Deleon (quit going) 16. [place] 1982 17. COPD 18. CAD 19. CABGs 2000 20. Left hip injury, Dr. Cam Dobbins 21. Ventral hernia 22. Hypertension 23. Dyslipidemia 24. DJD spine 25. Hyperglycemia 26. Mildly dilated 27. Aortic root 28. LVH with mild enlarged LAC ejection fraction 52% PLAN: 1. Routine telemetry orders 2. CBC/CMP now and daily 3. ABG on room air now 4. Levaquin 500 mg IV daily 5. Solu-Cortef 125 IV q.8hr 6. Albuterol inhaler t.i.d. 7. Symbicort 160/4.5 two puffs b.i.d. 8. 02 @ 1-2L OK 9. NS @ 75 cc/hr IV 10. Regular diet 11. Continue home medications 12. Vitamin D 5000 daily p.o. 13. Zinc 220 daily p.o. TIME SPENT: More than 70 minutes. MTDD
[2020-08-13] MEDS: ATIVAN PO SCH (21:04)
[2020-08-13] MEDS: NORVASC PO SCH (21:04)
[2020-08-13] MEDS: TRIGLIDE PO SCH (21:04)
[2020-08-13] MEDS: FLOMAX PO SCH (21:05)
[2020-08-14] MEDS: VENTOLIN HFA (PER PUFF-WITH SPACER) IH SCH ×3 (05:10→20:10)
[2020-08-14] MEDS: SOLU-CORTEF 250 MG IVP SCH ×3 (05:30→20:52)
[2020-08-14 05:31] LABS: BASOPHILS % (AUTO) 0.1 % (0.0-3.0); HEMATOCRIT 40.8 % (42.0-52.0); HEMOGLOBIN 14.3 g/dl (14.0-18.0); IMMATURE GRANULOCYTE # (AUTO) 0.1 (0.0-1.0); IMMATURE GRANULOCYTE % (AUTO) 1.3 % (0.0-5.0); LYMPHOCYTES % (AUTO) 9.6 (10.0-50.0); MEAN CORPUSCULAR HEMOGLOBIN 30.4 pg (27.0-31.0); MEAN CORPUSCULAR VOLUME 86.8 fl (80.0-94.0); MONOCYTES # (AUTO) 0.6 K/uL (0.4-2.0); MONOCYTES % (AUTO) 5.6 (0-10); NEUTROPHILS # (AUTO) 8.3 K/ul (2.0-6.9); NEUTROPHILS % (AUTO) 83.4 % (42.2-75.2); PLATELET COUNT 176 10^3/uL (140-440); RDW COEFFICIENT OF VARIATION 12.3 % (11.6-14.8); WHITE BLOOD COUNT 9.89 K/ul (4.2-10.2)
[2020-08-14] MEDS: PEPCID PO SCH ×2 (05:31→16:23)
[2020-08-14] MEDS: FERROUS SULFATE PO SCH ×2 (05:31→16:23)
[2020-08-14] MEDS: SYNTHROID PO SCH (05:32)
[2020-08-14] MEDS: NORCO 7.5-325 PO PRN ×3 (05:32→20:53)
[2020-08-14 05:47] LABS: ALANINE AMINOTRANSFERASE 36.4 U/L (0-50); ALBUMIN 3.4 g/dL (3.5-5.0); ALKALINE PHOSPHATASE 43.4 U/L (56-119); ASPARTATE AMINO TRANSFERASE 24.1 U/L (17-59); BILIRUBIN,TOTAL 0.71 mg/dL (0.2-1.3); BLOOD UREA NITROGEN 16.9 mg/dL (9-20); CALCIUM 8.52 mg/dL (8.4-10.2); CARBON DIOXIDE 19.7 mmol/L (22-30.0); CREATININE 0.83 mg/dL (0.60-1.10); GLUCOSE 162.6 mg/dL (74-106); POTASSIUM 3.77 mmol/L (3.5-5.1); SODIUM 135.7 mmol/L (134.5-145); TOTAL PROTEIN 5.96 g/dL (6.3-8.2)
[2020-08-14 05:48] LABS: PROTHROMBIN TIME 11.5 SEC (9.3-11.0)
[2020-08-14 06:04] LABS: TROPONIN I < 0.012 ng/ml (0.0000-0.120)
[2020-08-14] MEDS: LEVAQUIN 750 MG/150 ML D5W 750 MG/150 ML BAG IV SCH (08:43)
[2020-08-14] MEDS: SYMBICORT 160-4.5 MCG INHALER IH SCH ×2 (08:43→20:54)
[2020-08-14] MEDS: LIPITOR PO SCH (08:48)
[2020-08-14] MEDS: LOPRESSOR PO SCH ×2 (08:48→20:53)
[2020-08-14] MEDS: ASPIRIN CHEWABLE PO SCH (08:48)
[2020-08-14] MEDS: ZINC-220 PO SCH (08:49)
[2020-08-14] MEDS: VITAMIN D PO SCH (08:49)
[2020-08-14] MEDS: OMEGA-3 FISH OIL PO SCH ×2 (08:49→20:53)
[2020-08-14] MEDS: VITAMIN E PO SCH (08:49)
[2020-08-14] MEDS: SODIUM CHLORIDE 1,000 ML IV SCH (08:50)
[2020-08-14] MEDS: NON-FORMULARY MEDICATION (Lysine Hcl 500 MG tablet) PO SCH ×2 (08:50→20:54)
[2020-08-14 10:10] LABS: C-REACTIVE PROTEIN 3 mg/L (0-10)
[2020-08-14] MEDS: ATIVAN PO SCH (20:52)
[2020-08-14] MEDS: FLOMAX PO SCH (20:53)
[2020-08-14] MEDS: TRIGLIDE PO SCH (20:54)
[2020-08-14] MEDS: NORVASC PO SCH (20:54)
[2020-08-15] MEDS: VENTOLIN HFA (PER PUFF-WITH SPACER) IH SCH ×3 (05:15→19:40)
[2020-08-15 05:17] LABS: BASOPHILS % (AUTO) 0.1 % (0.0-3.0); HEMATOCRIT 36.3 % (42.0-52.0); HEMOGLOBIN 12.7 g/dl (14.0-18.0); IMMATURE GRANULOCYTE # (AUTO) 0.1 (0.0-1.0); IMMATURE GRANULOCYTE % (AUTO) 1.6 % (0.0-5.0); LYMPHOCYTES # (AUTO) 0.6 K/uL (0.60-3.4); LYMPHOCYTES % (AUTO) 8.2 (10.0-50.0); MEAN CORPUSCULAR HEMOGLOBIN 31.1 pg (27.0-31.0); MEAN CORPUSCULAR VOLUME 88.8 fl (80.0-94.0); MONOCYTES # (AUTO) 0.4 K/uL (0.4-2.0); MONOCYTES % (AUTO) 5.8 (0-10); NEUTROPHILS % (AUTO) 84.3 % (42.2-75.2); PLATELET COUNT 134 10^3/uL (140-440); RDW COEFFICIENT OF VARIATION 12.7 % (11.6-14.8); RED BLOOD COUNT 4.09 10^6/ul (4.70-6.10); WHITE BLOOD COUNT 7.07 K/ul (4.2-10.2)
[2020-08-15] MEDS: SOLU-CORTEF 250 MG IVP SCH ×3 (05:31→21:05)
[2020-08-15] MEDS: SYNTHROID PO SCH (05:32)
[2020-08-15] MEDS: PEPCID PO SCH ×2 (05:32→16:13)
[2020-08-15] MEDS: FERROUS SULFATE PO SCH ×2 (05:32→16:13)
[2020-08-15] MEDS: NORCO 7.5-325 PO PRN ×3 (05:32→21:06)
[2020-08-15 05:33] LABS: ALANINE AMINOTRANSFERASE 29.8 U/L (0-50); ALBUMIN 2.88 g/dL (3.5-5.0); ALKALINE PHOSPHATASE 42.3 U/L (56-119); BILIRUBIN,TOTAL 0.49 mg/dL (0.2-1.3); BLOOD UREA NITROGEN 17.5 mg/dL (9-20); CALCIUM 8.39 mg/dL (8.4-10.2); CARBON DIOXIDE 26.4 mmol/L (22-30.0); CHLORIDE 106.6 mmol/L (98-107); CREATININE 1.01 mg/dL (0.60-1.10); GLUCOSE 162.1 mg/dL (74-106); PROTHROMBIN TIME 11.3 SEC (9.3-11.0); SODIUM 136.8 mmol/L (134.5-145); TOTAL PROTEIN 5.19 g/dL (6.3-8.2)
[2020-08-15 05:41] LABS: TROPONIN I < 0.012 ng/ml (0.0000-0.120)
[2020-08-15] MEDS: SYMBICORT 160-4.5 MCG INHALER IH SCH ×2 (08:39→20:33)
[2020-08-15] MEDS: LEVAQUIN 750 MG/150 ML D5W 750 MG/150 ML BAG IV SCH (08:39)
[2020-08-15] MEDS: VITAMIN D PO SCH (08:40)
[2020-08-15] MEDS: ASPIRIN CHEWABLE PO SCH (08:40)
[2020-08-15] MEDS: LOPRESSOR PO SCH ×2 (08:40→20:32)
[2020-08-15] MEDS: ZINC-220 PO SCH (08:40)
[2020-08-15] MEDS: VITAMIN E PO SCH (08:40)
[2020-08-15] MEDS: OMEGA-3 FISH OIL PO SCH ×2 (08:40→20:31)
[2020-08-15] MEDS: LIPITOR PO SCH (08:40)
[2020-08-15] MEDS: NON-FORMULARY MEDICATION (Lysine Hcl 500 MG tablet) PO SCH ×2 (08:41→20:35)
[2020-08-15 09:16] LABS: C-REACTIVE PROTEIN 1 mg/L (0-10)
[2020-08-15] MEDS: FLOMAX PO SCH (20:31)
[2020-08-15] MEDS: ATIVAN PO SCH (20:32)
[2020-08-15] MEDS: NORVASC PO SCH (20:32)
[2020-08-15] MEDS: TRIGLIDE PO SCH (20:32)
[2020-08-16] MEDS: VENTOLIN HFA (PER PUFF-WITH SPACER) IH SCH ×3 (05:00→19:35)
[2020-08-16 05:39] LABS: BASOPHILS % (AUTO) 0.2 % (0.0-3.0); EOSINOPHILS % (AUTO) 0.3 % (0.0-7.0); HEMATOCRIT 36.7 % (42.0-52.0); HEMOGLOBIN 12.5 g/dl (14.0-18.0); IMMATURE GRANULOCYTE # (AUTO) 0.1 (0.0-1.0); IMMATURE GRANULOCYTE % (AUTO) 1.5 % (0.0-5.0); LYMPHOCYTES # (AUTO) 1.1 K/uL (0.60-3.4); LYMPHOCYTES % (AUTO) 19.1 (10.0-50.0); MEAN CORPUSCULAR HEMOGLOBIN 30.4 pg (27.0-31.0); MEAN CORPUSCULAR HGB CONC 34.1 (31.8-35.4); MEAN CORPUSCULAR VOLUME 89.3 fl (80.0-94.0); MONOCYTES # (AUTO) 0.5 K/uL (0.4-2.0); MONOCYTES % (AUTO) 8.6 (0-10); NEUTROPHILS # (AUTO) 4.1 K/ul (2.0-6.9); NEUTROPHILS % (AUTO) 70.3 % (42.2-75.2); PLATELET COUNT 115 10^3/uL (140-440); RDW COEFFICIENT OF VARIATION 12.8 % (11.6-14.8); RED BLOOD COUNT 4.11 10^6/ul (4.70-6.10); WHITE BLOOD COUNT 5.81 K/ul (4.2-10.2)
[2020-08-16] MEDS: SOLU-CORTEF 250 MG IVP SCH ×3 (05:39→21:24)
[2020-08-16] MEDS: PEPCID PO SCH ×2 (05:40→17:09)
[2020-08-16] MEDS: FERROUS SULFATE PO SCH ×2 (05:40→17:09)
[2020-08-16] MEDS: SYNTHROID PO SCH (05:40)
[2020-08-16 05:49] LABS: ALANINE AMINOTRANSFERASE 31.1 U/L (0-50); ALBUMIN 2.78 g/dL (3.5-5.0); ALKALINE PHOSPHATASE 35.6 U/L (56-119); ASPARTATE AMINO TRANSFERASE 25.9 U/L (17-59); BILIRUBIN,TOTAL 0.65 mg/dL (0.2-1.3); BLOOD UREA NITROGEN 15.5 mg/dL (9-20); CALCIUM 8.2 mg/dL (8.4-10.2); CARBON DIOXIDE 29.5 mmol/L (22-30.0); CHLORIDE 107.3 mmol/L (98-107); CREATININE 1.02 mg/dL (0.60-1.10); GLUCOSE 95.6 mg/dL (74-106); POTASSIUM 3.63 mmol/L (3.5-5.1); SODIUM 139.1 mmol/L (134.5-145); TOTAL PROTEIN 5.06 g/dL (6.3-8.2)
[2020-08-16] MEDS: NORCO 7.5-325 PO PRN ×3 (06:51→21:25)
[2020-08-16 08:24] LABS: ABG PH 7.52 (7.35-7.45)
[2020-08-16] MEDS: ASPIRIN CHEWABLE PO SCH (08:51)
[2020-08-16] MEDS: LIPITOR PO SCH (08:51)
[2020-08-16] MEDS: LEVAQUIN 750 MG/150 ML D5W 750 MG/150 ML BAG IV SCH (08:51)
[2020-08-16] MEDS: LOPRESSOR PO SCH ×2 (08:51→21:24)
--- NOTE | 2020-08-16 08:51 | PCM.PROG ---
Attending Provider: ATTENDING PROVIDER: Dr. LEONEL MONTGOMERY This patient is seen with Debi Munguia, Nurse Practitioner. DATE OF SERVICE: 08/16/20 SUBJECTIVE: This 80 year old /WHITE M was hospitalized 08/12/20. The patient is resting comfortably. He is still feeling shortness of breath with exertion but has improved. Eating well with no fever. REVIEW OF SYSTEMS: CONSTITUTIONAL: No night sweats. No fatigue, malaise, lethargy. No fever or chills. Weakness. HEENT: Eyes: No visual changes. No eye pain. No eye discharge. ENT: No runny nose. No epistaxis. No sinus pain. No odynophagia. No congestion. RESPIRATORY: No cough, no congestion. No hemoptysis. Shortness of breath. CARDIOVASCULAR: No angina symptoms. No CHF symptoms. No atypical chest pain for CAD. No palpitations. No orthopnea.. GASTROINTESTINAL: No abdominal pain. No nausea or vomiting. No diarrhea or c onstipation. No hematemesis. No hematochezia. GENITOURINARY: No urgency. No frequency. No dysuria. No hematuria. No obstructive symptoms. No discharge. No pain. No significant abnormal bleeding. MUSCULOSKELETAL: No musculoskeletal pain; no joint swelling. NEUROLOGICAL: Awake, alert, oriented to time, place and person. No headache. No neck pain. No syncope. No seizures. No dizziness. PSYCHIATRIC: Not anxious. No depression. No suicidal thoughts. No homicidal thoughts. SKIN: No rash. No lesions. No wounds. ENDOCRINE: No unexplained weight loss. No weight gain. HEMATOLOGIC/LYMPHATIC: No anemia. No purpura. No petechiae. No prolonged or excessive bleeding. No palpable lymph nodes. PHYSICAL EXAMINATION: GENERAL: The patient is awake, alert and oriented, lying in bed in no distress. VITAL SIGNS: Temperature 97.3 F, Pulse 68, Respiratory Rate 18, BP 119/70, Pulse Ox 96% HEENT: Head normocephalic, atraumatic. Eyes: Extraocular muscles are intact. Pupils are equal, round and reactive to light and accommodation. Ears: No lesions. Nose appeared normal. Throat: No exudate or erythema. NECK: Supple. No JVD, no carotid bruit. No lymphadenopathy or thyromegaly. LUNGS: Diminished breath sounds. Clear to auscultation. Percussion note normal. Chest symmetrical. HEART: S1, S2, no S3. No murmurs. No cyanosis or clubbing. No ascites. Pulses: Dorsalis pedis and posterior tibial pulses +1 to +2 both sides. ABDOMEN: Soft. Non-tender. Bowel sounds active. No CVA tenderness. No mass felt. EXTREMITIES: No edema. Full range of motion of all extremities, equal. NEUROLOGIC: No focal deficit. Cranial nerves II through XII are grossly intact. No headache. No double vision. SKIN: Not dry. Intact. Turgor-normal. LYMPHATIC: No palpable lymph nodes/no lymphedema. MUSCULOSKELETAL: Normal joints with no swelling. Muscle tone is normal. LAB REVIEW: 08/16/20 05:30 08/16/20 05:30 08/16/20 05:30: Sodium 139.1, Potassium 3.63, Chloride 107.3 H, Carbon Dioxide 29.5, Anion Gap 5.93, BUN 15.5, Creatinine 1.02, Estimated GFR (MDRD) 70.00, BUN/Creatinine Ratio 15.19, Glucose 95.6, Calcium 8.20 L, Total Bilirubin 0.65, AST 25.9, ALT 31.1, Alkaline Phosphatase 35.6 L, Total Protein 5.06 L, Albumin 2.78 L, Globulin 2.28, Albumin/Globulin Ratio 1.21 08/16/20 05:30: WBC 5.81, RBC 4.11 L, Hgb 12.5 L, Hct 36.7 L, MCV 89.3, MCH 30.4, MCHC 34.1, RDW Coeff of Lewis 12.8, Plt Count 115 L, Immature Gran % (Auto) 1.5, Neut % (Auto) 70.3, Lymph % (Auto) 19.1, [place] % (Auto) 8.6, Eos % (Auto) 0.3, Baso % (Auto) 0.2, Neut # (Auto) 4.1, Lymph # (Auto) 1.1, [place] # (Auto) 0.5, Eos # (Auto) 0.0, Baso # (Auto) 0.0, Immature Gran # (Auto) 0.1 08/15/20 05:05: Ferritin 1810.00 H 08/14/20 05:20: C-Reactive Prot, Quant 1 ASSESSMENT: Please see below. 1. COVID 19 pneumonia 2. Shortness of breath 3. Generalized weakness 4. COPD PLAN: 1. Continue Levaquin 2. Solu-Medrol Q 12 hours 2 Plan and coordination of the patient's care discussed in the presence of Fishing Accessories Maker and nurse. SCRIBED BY: Sheila BRIONESist scribed while in presence of service performed by Dr. Montgomery/Debi Munguia APRN on 08/16/20 ([id number])
[2020-08-16] MEDS: OMEGA-3 FISH OIL PO SCH ×2 (08:52→21:25)
[2020-08-16] MEDS: VITAMIN D PO SCH (08:52)
[2020-08-16] MEDS: VITAMIN E PO SCH (08:52)
[2020-08-16] MEDS: SYMBICORT 160-4.5 MCG INHALER IH SCH ×2 (08:53→21:30)
[2020-08-16] MEDS: ZINC-220 PO SCH (08:53)
[2020-08-16 09:04] LABS: PROTHROMBIN TIME 10.8 SEC (9.3-11.0)
--- NOTE | 2020-08-16 09:18 | PN ---
DATE OF SERVICE: 08/13/20 SUBJECTIVE: The patient was seen and examined with the nurse practitioner. The patient's condition is improving. He is feeling better. He is Covid positive with bilateral infiltrate. He is on steroids, antibiotics. Hydration status is improved overall, feeling better. TIME SPENT: More than 30 minutes. Plan and coordination of the patient's care discussed in the presence of nurse. MELSISA
[2020-08-16 09:19] LABS: TROPONIN I 0.013 ng/ml (0.0000-0.120)
[2020-08-16] MEDS: NON-FORMULARY MEDICATION (Lysine Hcl 500 MG tablet) PO SCH ×2 (09:55→20:08)
--- NOTE | 2020-08-16 14:57 | PN ---
DATE OF SERVICE: 08/14/20 SUBJECTIVE: 80-year-old white male hospitalized with shortness of breath with bilateral Covid pneumonia. The patient had pneumonia three weeks ago and is still positive for Covid. The patient was seen in the emergency room a few days prior to hospitalization where the patient was tested as Covid negative. REVIEW OF SYSTEMS: CONSTITUTIONAL: Fatigue - had taken a shower today. No night sweats. No malaise, lethargy. No fever or chills. HEENT: Eyes: No visual changes. No eye pain. No eye discharge. ENT: No runny nose. No epistaxis. No sinus pain. No sore throat. No odynophagia. No congestion. RESPIRATORY: No cough, no congestion. No hemoptysis. No shortness of breath. CARDIOVASCULAR: No angina symptoms. No CHF symptoms. No atypical chest pain for CAD. No palpitations. No PND. No orthopnea. GASTROINTESTINAL: No abdominal pain. No nausea or vomiting. No diarrhea or constipation. No hematemesis. No hematochezia. GENITOURINARY: No urgency. No frequency. No dysuria. No hematuria. No obstructive symptoms. No discharge. No pain. No significant abnormal bleeding. MUSCULOSKELETAL: No musculoskeletal pain; no joint swelling. NEUROLOGICAL: No headache. No neck pain. No syncope. No seizures. No dizziness. PSYCHIATRIC: Not anxious. No depression. No suicidal thoughts. No homicidal thoughts. SKIN: No rash. No lesions. No wounds. ENDOCRINE: No unexplained weight loss. No weight gain. HEMATOLOGIC/LYMPHATIC: No anemia. No purpura. No petechiae. No prolonged or excessive bleeding. No palpable lymph nodes. PHYSICAL EXAMINATION: GENERAL: The patient is oriented to time, place and person. VITAL SIGNS: Temperature 97.7, pulse 73, respiratory rate 20, BP 139/95, pulse ox 96% on 2L. HEENT: Head normocephalic, atraumatic. Eyes: Extraocular muscles are intact. Pupils are equal, round and reactive to light and accommodation. Ears: No lesions. Nose appeared normal. Throat: No exudate or erythema. NECK: Supple. No JVD, no carotid bruit. No lymphadenopathy or thyromegaly. LUNGS: Decreased breath sounds but clear to auscultation. Percussion note normal. Chest symmetrical. HEART: S1, S2, no S3. No murmurs. No cyanosis or clubbing. No ascites. Pulses: Dorsalis pedis and posterior tibial pulses +1 to +2 bilaterally. ABDOMEN: Soft. Nontender. Bowel sounds active. No CVA tenderness. No mass felt. EXTREMITIES: No edema. Full range of motion of all extremities, equal. NEUROLOGIC: No focal deficit. Cranial nerves II through XII are grossly intact. No headache. No double vision. SKIN: Not dry. Intact. Turgor - normal. LYMPHATIC: No palpable lymph nodes/no lymphedema. MUSCULOSKELETAL: Normal joints with no swelling. Muscle tone is normal. LABS: Hemoglobin 14, hematocrit 40, WBC 9,800, normal differential. Creatinine 0.8, BUN 16, potassium 3.7. ABG FI02 of 28% on 2L oxygen, showed pH 7.50 with p02 of 90 with pc02 of 26, saturation 93%. Telemetry shows sinus rhythm, no acute changes. ASSESSMENT: 1. Bilateral infiltrate with possibility of pneumonia slowly resolving with Covid-19. 2. The patient had coronary artery bypass surgery. 3. Cardiovascular status seems to be stable. PLAN: 1. Continue steroids, inhalers, antibiotics, Levaquin. 2. Will do echocardiogram to evaluate LV function. TIME SPENT: More than 30 minutes. Plan and coordination of the patient's care discussed in the presence of nurse. MELISSA
--- NOTE | 2020-08-16 15:46 | DI ---
EXAM: PA and lateral views of the chest HISTORY: Follow up pneumonia COMPARISON: X-ray 08/12/2020 and multiple priors FINDINGS: The cardiomediastinal silhouette is unremarkable with atherosclerotic disease of the aorta . There are sternotomy wires present. There is no pneumothorax or pleural effusion. There is mild patchy ground-glass in the lower lobes. There is no consolidation, nodule or mass. There is scatter ed degenerative disease throughout the spine. IMPRESSION: Minimal patchy ground-glass in the lower lobes may represent residual inflammation/infec tion. Underlying chronic process/chronic obstructive pulmonary disease cannot be excluded.
[2020-08-16] MEDS: ATIVAN PO SCH (21:24)
[2020-08-16] MEDS: TRIGLIDE PO SCH (21:25)
[2020-08-16] MEDS: FLOMAX PO SCH (21:25)
[2020-08-16] MEDS: NORVASC PO SCH (21:25)
[2020-08-17] MEDS: TYLENOL PO PRN (00:39)
[2020-08-17] MEDS: VENTOLIN HFA (PER PUFF-WITH SPACER) IH SCH ×3 (04:50→19:33)
[2020-08-17 05:13] LABS: HEMATOCRIT 35.5 % (42.0-52.0); HEMOGLOBIN 12.4 g/dl (14.0-18.0); IMMATURE GRANULOCYTE # (AUTO) 0.1 (0.0-1.0); IMMATURE GRANULOCYTE % (AUTO) 1.7 % (0.0-5.0); LYMPHOCYTES # (AUTO) 0.7 K/uL (0.60-3.4); LYMPHOCYTES % (AUTO) 11.8 (10.0-50.0); MEAN CORPUSCULAR HEMOGLOBIN 30.6 pg (27.0-31.0); MEAN CORPUSCULAR HGB CONC 34.9 (31.8-35.4); MEAN CORPUSCULAR VOLUME 87.7 fl (80.0-94.0); MONOCYTES # (AUTO) 0.4 K/uL (0.4-2.0); MONOCYTES % (AUTO) 6.5 (0-10); PLATELET COUNT 126 10^3/uL (140-440); RDW COEFFICIENT OF VARIATION 12.6 % (11.6-14.8); RED BLOOD COUNT 4.05 10^6/ul (4.70-6.10); WHITE BLOOD COUNT 6.29 K/ul (4.2-10.2)
[2020-08-17 05:25] LABS: ALANINE AMINOTRANSFERASE 32.3 U/L (0-50); ALBUMIN 2.79 g/dL (3.5-5.0); ASPARTATE AMINO TRANSFERASE 26.3 U/L (17-59); BILIRUBIN,TOTAL 0.6 mg/dL (0.2-1.3); BLOOD UREA NITROGEN 15.7 mg/dL (9-20); CALCIUM 8.13 mg/dL (8.4-10.2); CARBON DIOXIDE 28.7 mmol/L (22-30.0); CHLORIDE 105.2 mmol/L (98-107); CREATININE 0.91 mg/dL (0.60-1.10); GLUCOSE 152.8 mg/dL (74-106); POTASSIUM 3.44 mmol/L (3.5-5.1); SODIUM 136.8 mmol/L (134.5-145)
[2020-08-17] MEDS: PEPCID PO SCH ×2 (05:33→17:05)
[2020-08-17] MEDS: NORCO 7.5-325 PO PRN ×2 (05:33→18:10)
[2020-08-17] MEDS: SYNTHROID PO SCH (05:33)
[2020-08-17] MEDS: FERROUS SULFATE PO SCH ×2 (05:33→17:05)
--- NOTE | 2020-08-17 07:41 | PN ---
DATE OF SERVICE: 08/15/20 SUBJECTIVE: The patient was seen and examined today. Condition is stable. He is still short of breath on minimal exertion. Emotionally he seems to be down. REVIEW OF SYSTEMS: CONSTITUTIONAL: No night sweats. No fatigue, malaise, lethargy. No fever or chills. HEENT: Eyes: No visual changes. No eye pain. No eye discharge. ENT: No runny nose. No epistaxis. No sinus pain. No sore throat. No odynophagia. No congestion. RESPIRATORY: No cough, no congestion. No hemoptysis. Shortness of breath on exertion as usual. CARDIOVASCULAR: No angina symptoms. No CHF symptoms. No atypical chest pain for CAD. No palpitations. No PND. No orthopnea. GASTROINTESTINAL: Appetite seems to have improved. No abdominal pain. No nausea or vomiting. No diarrhea or constipation. No hematemesis. No hematochezia. GENITOURINARY: No urgency. No frequency. No dysuria. No hematuria. No obstructive symptoms. No discharge. No pain. No significant abnormal bleeding. MUSCULOSKELETAL: No musculoskeletal pain; no joint swelling. NEUROLOGICAL: No headache. No neck pain. No syncope. No seizures. No dizziness. PSYCHIATRIC: Not anxious. No depression. No suicidal thoughts. No homicidal thoughts. SKIN: No rash. No lesions. No wounds. ENDOCRINE: No unexplained weight loss. No weight gain. HEMATOLOGIC/LYMPHATIC: No anemia. No purpura. No petechiae. No prolonged or excessive bleeding. No palpable lymph nodes. PHYSICAL EXAMINATION: VITAL SIGNS: Temperature 97.6, pulse 70, respiratory rate 16, BP 144/77, pulse ox 96% on 2L. GENERAL: The patient is oriented to time, place and person. HEENT: Head normocephalic, atraumatic. Eyes: Extraocular muscles are intact. Pupils are equal, round and reactive to light and accommodation. Ears: No lesions. Nose appeared normal. Throat: No exudate or erythema. NECK: Supple. No JVD, no carotid bruit. No lymphadenopathy or thyromegaly. LUNGS: Decreased breath sounds bilaterally. Clear to auscultation. Percussion note normal. Chest symmetrical. HEART: S1, S2, no S3. No murmurs. No cyanosis or clubbing. No ascites. Pulses: Dorsalis pedis and posterior tibial pulses +1 to +2 bilaterally. ABDOMEN: Soft. Nontender. Bowel sounds active. No CVA tenderness. No mass felt. EXTREMITIES: No edema. Full range of motion of all extremities, equal. NEUROLOGIC: No focal deficit. Cranial nerves II through XII are grossly intact. No headache. No double vision. SKIN: Not dry. Intact. Turgor - normal. LYMPHATIC: No palpable lymph nodes/no lymphedema. MUSCULOSKELETAL: Normal joints with no swelling. Muscle tone is normal. LABS: Hemoglobin 12.7, hematocrit 36, WBC 7,000, normal differential. Creatinine 1, BUN 17, potassium 4. ABG on 2L pH 7.5 with p02 of 78, pc02 of 32, oxygen saturation 94% on 2L. C-reactive protein is 3. pH 158. T4, TSH normal. ASSESSMENT: 1. Covid-19 pneumonia resolved but the patient has fibrosis to be the problem. He is going to need nursing home physical/spirometric therapy. 2. Chronic respiratory failure. I explained about this finding. 3. Coronary artery bypass surgery. 4. Obesity. 5. History of dyslipidemia. 6. Hypertension. 7. Multiple comorbidities. PLAN: 1. The patient will be continued on antibiotics, steroids, inhalers. 2, The patient will have an echocardiogram done. PROGNOSIS: Guarded. TIME SPENT: More than 30 minutes. Plan and coordination of the patient's care discussed in the presence of nurse. MELISSA
--- NOTE | 2020-08-17 08:22 | PCM.PROG ---
Attending Provider: ATTENDING PROVIDER: Dr. LEONEL DOBBINS This patient is seen with Debi Munguia, Nurse Practitioner. DATE OF SERVICE: 08/17/20 SUBJECTIVE: This 80 year old /WHITE M was hospitalized 08/12/20. The patient is resting comfortably. He has been doing well. Has been up and about walking in the [place]. Shortness of breath steadily has improved. The patient is feeling strong. REVIEW OF SYSTEMS: CONSTITUTIONAL: No night sweats. No fatigue, malaise, lethargy. No fever or chills. Weakness. HEENT: Eyes: No visual changes. No eye pain. No eye discharge. ENT: No runny nose. No epistaxis. No sinus pain. No odynophagia. No congestion. RESPIRATORY: Cough, no congestion. No hemoptysis. No shortness of breath. CARDIOVASCULAR: No angina symptoms. No CHF symptoms. No atypical chest pain for CAD. No palpitations. No orthopnea.. GASTROINTESTINAL: No abdominal pain. No nausea or vomiting. No diarrhea or constipation. No hematemesis. No hematochezia. GENITOURINARY: No urgency. No frequency. No dysuria. No hematuria. No obstructive symptoms. No discharge. No pain. No significant abnormal bleeding. MUSCULOSKELETAL: No musculoskeletal pain; no joint swelling. NEUROLOGICAL: Awake, alert, oriented to time, place and person. No headache. No neck pain. No syncope. No seizures. No dizziness. PSYCHIATRIC: Not anxious. No depression. No suicidal thoughts. No homicidal thoughts. SKIN: No rash. No lesions. No wounds. ENDOCRINE: No unexplained weight loss. No weight gain. HEMATOLOGIC/LYMPHATIC: No anemia. No purpura. No petechiae. No prolonged or excessive bleeding. No palpable lymph nodes. PHYSICAL EXAMINATION: GENERAL: The patient is awake, alert and oriented, sitting in bed in no distress. VITAL SIGNS: Temperature 97.4 F, Pulse 59, Respiratory Rate 18, BP 122/65, Pulse Ox 97% HEENT: Head normocephalic, atraumatic. Eyes: Extraocular muscles are intact. Pupils are equal, round and reactive to light and accommodation. Ears: No lesions. Nose appeared normal. Throat: No exudate or erythema. NECK: Supple. No JVD, no carotid bruit. No lymphadenopathy or thyromegaly. LUNGS: Diminished breath sounds. Clear to auscultation. Percussion note normal. Chest symmetrical. HEART: S1, S2, no S3. No murmurs. No cyanosis or clubbing. No ascites. Pulses: Dorsalis pedis and posterior tibial pulses +1 to +2 both sides. ABDOMEN: Soft. Non-tender. Bowel sounds active. No CVA tenderness. No mass felt. EXTREMITIES: No edema. Full range of motion of all extremities, equal. NEUROLOGIC: No focal deficit. Cranial nerves II through XII are grossly intact. No headache. No double vision. SKIN: Not dry. Intact. Turgor-normal. LYMPHATIC: No palpable lymph nodes/no lymphedema. MUSCULOSKELETAL: Normal joints with no swelling. Muscle tone is normal. LAB REVIEW: 08/17/20 05:01 08/17/20 05:01 08/17/20 05:01: Sodium 136.8, Potassium 3.44 L, Chloride 105.2, Carbon Dioxide 28.7, Anion Gap 6.34, BUN 15.7, Creatinine 0.91, Estimated GFR (MDRD) 80.00, BUN/Creatinine Ratio 17.25, Glucose 152.8 H D, Calcium 8.13 L, Total Bilirubin 0.60, AST 26.3, ALT 32.3, Alkaline Phosphatase 42.0 L, Total Protein 5.00 L, Albumin 2.79 L, Globulin 2.21, Albumin/Globulin Ratio 1.26 08/17/20 05:01: WBC 6.29, RBC 4.05 L, Hgb 12.4 L, Hct 35.5 L, MCV 87.7, MCH 30.6, MCHC 34.9, RDW Coeff of Lewis 12.6, Plt Count 126 L, Immature Gran % (Auto) 1.7, Neut % (Auto) 80.0 H, Lymph % (Auto) 11.8, [place] % (Auto) 6.5, Eos % (Auto) 0.0, Baso % (Auto) 0.0, Neut # (Auto) 5.0, Lymph # (Auto) 0.7, [place] # (Auto) 0.4, Eos # (Auto) 0.0, Baso # (Auto) 0.0, Immature Gran # (Auto) 0.1 08/16/20 08:38: Ferritin 2270.00 H, Troponin I 0.013 08/16/20 08:38: PT 10.8, INR 1.02 08/16/20 08:38: D-Dimer 336.58 08/16/20 08:13: Puncture Site R brachial, Base Excess 3.2 H, O2 Saturation 97.0, ABG pH 7.52 H*, ABG pCO2 32.0 L, ABG pO2 81.0 L, ABG HCO3 26.1, ABG Total CO2 27.1 H, Yogesh Test Yes, Hemoglobin 0.7, Oxyhemoglobin 95.4, Carboxyhemoglobin 2.3 H, Total Hemoglobin 13.3, O2 Delivery Device Cannula, Oxygen Liter Flow 2.00 08/15/20 05:05: C-Reactive Prot, Quant < 1 ASSESSMENT: Please see below. 1. Bilateral COVID pneumonia 2. Shortness of breath 3. COPD 4. Hypokalemia PLAN: 1. Discontinue Solu-Cortef 2. Prednisone 20mg BID 3. Potassium 20meq twice a day 4. Encourage to eat well, be up all about Plan and coordination of the patient's care discussed in the presence of Medical Insurance Verifier and nurse. SCRIBED BY: BESS CANTU Api Developer scribed while in presence of service performed by Dr. Dobbins/Debi Munguia APRN on 08/17/20 ([id number])
[2020-08-17] MEDS: LEVAQUIN 750 MG/150 ML D5W 750 MG/150 ML BAG IV SCH (09:00)
[2020-08-17] MEDS: VITAMIN E PO SCH (09:02)
[2020-08-17] MEDS: ASPIRIN CHEWABLE PO SCH (09:07)
[2020-08-17] MEDS: VITAMIN D PO SCH (09:07)
[2020-08-17] MEDS: PREDNISONE PO SCH ×2 (09:08→17:05)
[2020-08-17] MEDS: ZINC-220 PO SCH (09:08)
[2020-08-17] MEDS: K-DUR PO SCH ×2 (09:08→17:04)
[2020-08-17] MEDS: OMEGA-3 FISH OIL PO SCH ×2 (09:08→20:22)
[2020-08-17] MEDS: LOPRESSOR PO SCH ×2 (09:08→20:22)
[2020-08-17] MEDS: LIPITOR PO SCH (09:09)
[2020-08-17] MEDS: SYMBICORT 160-4.5 MCG INHALER IH SCH ×2 (09:14→20:23)
[2020-08-17] MEDS: NON-FORMULARY MEDICATION (Lysine Hcl 500 MG tablet) PO SCH ×2 (09:16→20:26)
[2020-08-17] MEDS: ATIVAN PO SCH (20:22)
[2020-08-17] MEDS: TRIGLIDE PO SCH (20:22)
[2020-08-17] MEDS: NORVASC PO SCH (20:23)
[2020-08-17] MEDS: FLOMAX PO SCH (20:23)
[2020-08-18] MEDS: NORCO 7.5-325 PO PRN ×3 (00:26→18:21)
[2020-08-18] MEDS: VENTOLIN HFA (PER PUFF-WITH SPACER) IH SCH ×3 (04:55→19:40)
[2020-08-18 05:10] LABS: EOSINOPHILS % (AUTO) 0.1 % (0.0-7.0); HEMATOCRIT 39.8 % (42.0-52.0); HEMOGLOBIN 13.6 g/dl (14.0-18.0); IMMATURE GRANULOCYTE # (AUTO) 0.1 (0.0-1.0); IMMATURE GRANULOCYTE % (AUTO) 1.3 % (0.0-5.0); LYMPHOCYTES % (AUTO) 11.2 (10.0-50.0); MEAN CORPUSCULAR HEMOGLOBIN 30.3 pg (27.0-31.0); MEAN CORPUSCULAR HGB CONC 34.2 (31.8-35.4); MEAN CORPUSCULAR VOLUME 88.6 fl (80.0-94.0); MONOCYTES # (AUTO) 0.6 K/uL (0.4-2.0); NEUTROPHILS # (AUTO) 7.6 K/ul (2.0-6.9); NEUTROPHILS % (AUTO) 81.4 % (42.2-75.2); PLATELET COUNT 141 10^3/uL (140-440); RDW COEFFICIENT OF VARIATION 12.5 % (11.6-14.8); RED BLOOD COUNT 4.49 10^6/ul (4.70-6.10); WHITE BLOOD COUNT 9.28 K/ul (4.2-10.2)
[2020-08-18 05:18] LABS: ALANINE AMINOTRANSFERASE 35.6 U/L (0-50); ALBUMIN 3.31 g/dL (3.5-5.0); ALKALINE PHOSPHATASE 63.3 U/L (56-119); ASPARTATE AMINO TRANSFERASE 29.8 U/L (17-59); BILIRUBIN,TOTAL 0.65 mg/dL (0.2-1.3); BLOOD UREA NITROGEN 19.1 mg/dL (9-20); CALCIUM 8.42 mg/dL (8.4-10.2); CARBON DIOXIDE 26.7 mmol/L (22-30.0); CHLORIDE 107.7 mmol/L (98-107); CREATININE 0.98 mg/dL (0.60-1.10); GLUCOSE 149.3 mg/dL (74-106); POTASSIUM 3.65 mmol/L (3.5-5.1); SODIUM 139.5 mmol/L (134.5-145); TOTAL PROTEIN 5.73 g/dL (6.3-8.2)
[2020-08-18] MEDS: SYNTHROID PO SCH (05:34)
[2020-08-18] MEDS: PEPCID PO SCH ×2 (05:34→16:49)
[2020-08-18] MEDS: FERROUS SULFATE PO SCH ×2 (05:35→16:49)
[2020-08-18] MEDS: VITAMIN D PO SCH (08:38)
[2020-08-18] MEDS: SYMBICORT 160-4.5 MCG INHALER IH SCH ×2 (08:38→21:01)
[2020-08-18] MEDS: VITAMIN E PO SCH (08:38)
[2020-08-18] MEDS: LEVAQUIN 750 MG/150 ML D5W 750 MG/150 ML BAG IV SCH (08:38)
[2020-08-18] MEDS: LOPRESSOR PO SCH ×2 (08:39→21:00)
[2020-08-18] MEDS: ASPIRIN CHEWABLE PO SCH (08:39)
[2020-08-18] MEDS: ZINC-220 PO SCH (08:39)
[2020-08-18] MEDS: PREDNISONE PO SCH ×2 (08:40→16:48)
[2020-08-18] MEDS: LIPITOR PO SCH (08:40)
[2020-08-18] MEDS: OMEGA-3 FISH OIL PO SCH ×2 (08:40→21:00)
[2020-08-18] MEDS: NON-FORMULARY MEDICATION (Lysine Hcl 500 MG tablet) PO SCH ×2 (08:44→21:01)
[2020-08-18] MEDS: TYLENOL PO PRN (14:34)
[2020-08-18] MEDS: NORVASC PO SCH (21:00)
[2020-08-18] MEDS: TRIGLIDE PO SCH (21:00)
[2020-08-18] MEDS: FLOMAX PO SCH (21:00)
[2020-08-18] MEDS: ATIVAN PO SCH (21:00)
[2020-08-19 05:14] VITALS: BP 126/80; TEMP 98
[2020-08-19] MEDS: VENTOLIN HFA (PER PUFF-WITH SPACER) IH SCH (05:20)
[2020-08-19 05:25] LABS: BASOPHILS % (AUTO) 0.1 % (0.0-3.0); HEMATOCRIT 40.5 % (42.0-52.0); HEMOGLOBIN 13.7 g/dl (14.0-18.0); IMMATURE GRANULOCYTE # (AUTO) 0.2 (0.0-1.0); IMMATURE GRANULOCYTE % (AUTO) 2.3 % (0.0-5.0); LYMPHOCYTES # (AUTO) 1.1 K/uL (0.60-3.4); LYMPHOCYTES % (AUTO) 12.8 (10.0-50.0); MEAN CORPUSCULAR HEMOGLOBIN 30.1 pg (27.0-31.0); MEAN CORPUSCULAR HGB CONC 33.8 (31.8-35.4); MONOCYTES # (AUTO) 0.4 K/uL (0.4-2.0); MONOCYTES % (AUTO) 5.3 (0-10); NEUTROPHILS # (AUTO) 6.7 K/ul (2.0-6.9); NEUTROPHILS % (AUTO) 79.5 % (42.2-75.2); PLATELET COUNT 139 10^3/uL (140-440); RDW COEFFICIENT OF VARIATION 12.8 % (11.6-14.8); RED BLOOD COUNT 4.55 10^6/ul (4.70-6.10); WHITE BLOOD COUNT 8.37 K/ul (4.2-10.2)
[2020-08-19 05:29] LABS: ALANINE AMINOTRANSFERASE 36.4 U/L (0-50); ALBUMIN 3.31 g/dL (3.5-5.0); ALKALINE PHOSPHATASE 56.9 U/L (56-119); ASPARTATE AMINO TRANSFERASE 32.8 U/L (17-59); BILIRUBIN,TOTAL 0.75 mg/dL (0.2-1.3); BLOOD UREA NITROGEN 18.3 mg/dL (9-20); CALCIUM 8.83 mg/dL (8.4-10.2); CHLORIDE 103.7 mmol/L (98-107); GLUCOSE 121.4 mg/dL (74-106); POTASSIUM 3.73 mmol/L (3.5-5.1); SODIUM 138.3 mmol/L (134.5-145); TOTAL PROTEIN 5.67 g/dL (6.3-8.2)
[2020-08-19] MEDS: PEPCID PO SCH (05:44)
[2020-08-19] MEDS: FERROUS SULFATE PO SCH (05:44)
[2020-08-19] MEDS: SYNTHROID PO SCH (05:44)
--- NOTE | 2020-08-19 07:47 | PN ---
DATE OF SERVICE: 08/16/20 SUBJECTIVE: 80-year-old white male hospitalized with Covid-19 pneumonia. The patient's condition is steadily improving very slowly. The patient is on IV antibiotics and steroids. His appetite seems to have improved. The blood gases are acceptable. The patient was seen and examined with the nurse practitioner. TIME SPENT: More than 30 minutes. Plan and coordination of the patient's care discussed in the presence of nurse. MELISSA
--- NOTE | 2020-08-19 08:26 | PCM.PROG ---
Attending Provider: ATTENDING PROVIDER: Dr. LEONEL MONTGOMERY This patient is seen with Debi Munguia, Nurse Practitioner. DATE OF SERVICE: 08/19/20 SUBJECTIVE: This 80 year old /WHITE M was hospitalized 08/12/20. The patient is resting comfortably. He is eating well. Shortness of breath has improved. He is still tired. Ready for discharge today. Has home O2. REVIEW OF SYSTEMS: CONSTITUTIONAL: No night sweats. Fatigue. No fever or chills. HEENT: Eyes: No visual changes. No eye pain. No eye discharge. ENT: No runny nose. No epistaxis. No sinus pain. No odynophagia. No congestion. RESPIRATORY: Cough, no congestion. No hemoptysis. Shortness of breath. CARDIOVASCULAR: No angina symptoms. No CHF symptoms. No atypical chest pain for CAD. No palpitations. No orthopnea.. GASTROINTESTINAL: No abdominal pain. No nausea or vomiting. No diarrhea or constipation. No hematemesis. No hematochezia. GENITOURINARY: No urgency. No frequency. No dysuria. No hematuria. No obstruc tive symptoms. No discharge. No pain. No significant abnormal bleeding. MUSCULOSKELETAL: No musculoskeletal pain; no joint swelling. NEUROLOGICAL: Awake, alert, oriented to time, place and person. No headache. No neck pain. No syncope. No seizures. No dizziness. PSYCHIATRIC: Not anxious. No depression. No suicidal thoughts. No homicidal thoughts. SKIN: No rash. No lesions. No wounds. ENDOCRINE: No unexplained weight loss. No weight gain. HEMATOLOGIC/LYMPHATIC: No anemia. No purpura. No petechiae. No prolonged or excessive bleeding. No palpable lymph nodes. PHYSICAL EXAMINATION: GENERAL: The patient is awake, alert and oriented, sitting in bed in no distress. VITAL SIGNS: Temperature 98.0 F, Pulse 69, Respiratory Rate 18, BP 126/80, Pulse Ox 96% HEENT: Head normocephalic, atraumatic. Eyes: Extraocular muscles are intact. Pupils are equal, round and reactive to light and accommodation. Ears: No lesions. Nose appeared normal. Throat: No exudate or erythema. NECK: Supple. No JVD, no carotid bruit. No lymphadenopathy or thyromegaly. LUNGS: Diminished breath sounds. Clear to auscultation. Percussion note normal. Chest symmetrical. HEART: S1, S2, no S3. No murmurs. No cyanosis or clubbing. No ascites. Pulses: Dorsalis pedis and posterior tibial pulses +1 to +2 both sides. ABDOMEN: Soft. Non-tender. Bowel sounds active. No CVA tenderness. No mass felt. EXTREMITIES: No edema. Full range of motion of all extremities, equal. NEUROLOGIC: No focal deficit. Cranial nerves II through XII are grossly intact. No headache. No double vision. SKIN: Not dry. Intact. Turgor-normal. LYMPHATIC: No palpable lymph nodes/no lymphedema. MUSCULOSKELETAL: Normal joints with no swelling. Muscle tone is normal. LAB REVIEW: 08/19/20 05:12 08/19/20 05:12 08/19/20 05:12: Sodium 138.3, Potassium 3.73, Chloride 103.7, Carbon Dioxide 32.0 H, Anion Gap 6.33, BUN 18.3, Creatinine 1.00, Estimated GFR (MDRD) 72.00, BUN/Creatinine Ratio 18.30, Glucose 121.4 H, Calcium 8.83, Total Bilirubin 0.75, AST 32.8, ALT 36.4, Alkaline Phosphatase 56.9, Total Protein 5.67 L, Albumin 3.31 L, Globulin 2.36, Albumin/Globulin Ratio 1.40 08/19/20 05:12: WBC 8.37, RBC 4.55 L, Hgb 13.7 L, Hct 40.5 L, MCV 89.0, MCH 30.1, MCHC 33.8, RDW Coeff of Lewis 12.8, Plt Count 139 L, Immature Gran % (Auto) 2.3, Neut % (Auto) 79.5 H, Lymph % (Auto) 12.8, [place] % (Auto) 5.3, Eos % (Auto) 0.0, Baso % (Auto) 0.1, Neut # (Auto) 6.7, Lymph # (Auto) 1.1, [place] # (Auto) 0.4, Eos # (Auto) 0.0, Baso # (Auto) 0.0, Immature Gran # (Auto) 0.2 ASSESSMENT: Please see below. 1. Bilateral COVID pneumonia 2. COPD 3. Shortness of breath 4. Hypokalemia PLAN: 1. Discharge home 2. Levaquin 500mg daily for 3 days 3. Prednisone 20mg BID for 3 days and then daily for 3 days 4. Continue NEBs three times a day at home. 5. Continue Symbicort 6. Followup next weeks 7. Discussed with the patient to expect to have lasting fatigue and will take time. Plan and coordination of the patient's care discussed in the presence of Sap Solution Manager Consultant and nurse. SCRIBED BY: Sheila BRIONESist scribed while in presence of service performed by Dr. Montgomery/Debi Munguia APRN on 08/19/20 ([id number])
[2020-08-19] MEDS: ZINC-220 PO SCH (08:41)
[2020-08-19] MEDS: LIPITOR PO SCH (08:41)
[2020-08-19] MEDS: ASPIRIN CHEWABLE PO SCH (08:42)
[2020-08-19] MEDS: LOPRESSOR PO SCH (08:42)
[2020-08-19] MEDS: OMEGA-3 FISH OIL PO SCH (08:42)
[2020-08-19] MEDS: VITAMIN D PO SCH (08:42)
[2020-08-19] MEDS: VITAMIN E PO SCH (08:42)
[2020-08-19] MEDS: PREDNISONE PO SCH (08:42)
[2020-08-19] MEDS: SYMBICORT 160-4.5 MCG INHALER IH SCH (08:43)
[2020-08-19] MEDS: NON-FORMULARY MEDICATION (Lysine Hcl 500 MG tablet) PO SCH (08:46)
--- NOTE | 2020-08-19 10:01 | CM.DICTOOL ---
ADMISSION: 08/12/20 14:07 DISCHARGE: AUGUST 19, 2020 DATE OF SERVICE: 08/19/20 FINAL DIAGNOSIS BILATERAL COVID PNEUMONIA SHORTNESS OF BREATH DEHYDRATION HYPOKALEMIA, RESOLVED PERSONAL HISTORY OF COVID-19 (07/23/2020) COVID PNEUMONIA (07/28 AT [facility]) COPD PULMONARY FIBROSIS HYPERTENSION CAD [place], 1982 DYSLIPIDEMIA CHRONIC KIDNEY DISEASE, STAGE 3 B12 DEFICIENCY HYPOTHYROIDISM HYPERGLYCEMIA ESOPHAGEAL STRICTURE PROSTATE CANCER DJD SPINE CABG, 2000 TKR, RIGHT, 2017 HERNIA SURGERY PFT: 05/2015 MILD COPD ECHOCARDIOGRAM: COMPLETED 08/18/20 STRESS TEST: 02/23/2020 NO EVIDENCE OF ISCHEMIA LAST VITALS Temp Pulse Resp BP Pulse Ox 98.0 F 69 19 126/80 96 08/19/20 05:13 08/19/20 05:13 08/19/20 08:00 08/19/20 05:13 08/19/20 05:13 TAKE THESE MEDICATIONS AT HOME Hydrocodone Bitart/Acetaminophen (Hydrocodone Bit/Acetaminophen 7.5/325 Mg Tablet) 1 tab PO TID PRN PRN Reason: Pain Last Admin: 08/18/20 18:21 Dose: 1 tab Documented by: Albuterol Per Nebulizer treatment 1 vial TID Last Admin: Documented by: Amlodipine Besylate (Amlodipine Besylate 5 Mg Tablet) 10 mg PO BEDTIME [facility] Last Admin: 08/18/20 21:00 Dose: 10 mg Documented by: Aspirin (Aspirin 81 Mg Tab.Chew) 81 mg PO DAILYWM [facility] Last Admin: 08/19/20 08:42 Dose: 81 mg Documented by: Atorvastatin Calcium (Atorvastatin Calcium 20 Mg Tablet) 40 mg PO DAILY [facility] Last Admin: 08/19/20 08:41 Dose: 40 mg Documented by: Budesonide/Formoterol Fumarate 160/4.5 Mcg Inhaler) 2 puff IH BID VINNIE (NO RX...HOSPITAL SUPPLY) Last Admin: 08/19/20 08:43 Dose: 2 puff Documented by: Cholecalciferol (Cholecalciferol (Vitamin D3) 1,000 Unit Tablet) 5,000 unit PO DAILY VINNIE (x 30 days) Last Admin: 08/19/20 08:42 Dose: 5,000 unit Documented by: Fenofibrate (Fenofibrate 160 Mg Tablet) 160 mg PO BEDTIME [facility] Last Admin: 08/18/20 21:00 Dose: 160 mg Documented by: Ferrous Sulfate (Ferrous Sulfate 324 Mg Tablet.) 324 mg PO BIDAC [facility] Last Admin: 08/19/20 05:44 Dose: 324 mg Documented by: Fish Oil ([place]-3/Dha/Epa/Fish Oil 1,000 Mg Capsule) 2,000 mg PO BID [facility] Last Admin: 08/19/20 08:42 Dose: 2,000 mg Documented by: Levothyroxine Sodium (Levothyroxine Sodium 112 Mcg Tablet) 112 mcg PO QDAC [facility] Last Admin: 08/19/20 05:44 Dose: 112 mcg Documented by: Lorazepam (Lorazepam 1 Mg Tablet) 1 mg PO BEDTIME [facility] Last Admin: 08/18/20 21:00 Dose: 1 mg Documented by: Metoprolol Tartrate (Metoprolol Tartrate 50 Mg Tablet) 100 mg PO BID [facility] Last Admin: 08/19/20 08:42 Dose: 100 mg Documented by: Non-Formulary Medication (Lysine Hcl) 1,000 mg PO BID [facility] Last Admin: 08/19/20 08:46 Dose: Not Given Documented by: Prednisone (Prednisone 20 Mg Tablet) 20 mg PO BIDWM [facility] (as directed) Last Admin: 08/19/20 08:42 Dose: 20 mg Documented by: Tamsulosin HCl (Tamsulosin Hcl 0.4 Mg Cap.Er.24h) 0.8 mg PO BEDTIME [facility] Last Admin: 08/18/20 21:00 Dose: 0.8 mg Documented by: Vitamin E (Vitamin E (Dl,Tocopheryl Acet) 400 Unit Capsule) 400 unit PO DAILY [facility] Last Admin: 08/19/20 08:42 Dose: 400 unit Documented by: Zinc Sulfate (Zinc Sulfate 220 Mg Capsule) 220 mg PO DAILY [facility] (x 30 days) Last Admin: 08/19/20 08:41 Dose: 220 mg Documented by: ALLERGIES No Known Allergies Allergy (Verified 02/06/17 08:16) DISCONTINUED MEDICATIONS NONE NEW PRESCRIPTIONS: LEVAQUIN 500 MG DAILY FOR 3 DAYS PREDNISONE 20 MG BID FOR 3 DAYS, THEN 20 MG DAILY FOR 3 DAYS SYMBICORT INHALER 2 PUFFS BID (HOSPITAL SUPPLY; NO RX) ALBUTEROL 0.083% FOR NEBULIZER TID (90 VIALS) VITAMIN D 5000 UNITS DAILY FOR 30 DAYS ZINC SULFATE 220 DAILY FOR 30 DAYS SMOKING: NOT APPLICABLE DISEASE SPECIFIC EDUCATION: COVID 19 PNEUMONIA PRESCRIPTIONS; INCLUDING PREDNISONE AND RISK OF GI IRRITATION APPOINTMENT USE OF OXYGEN/NEBULIZER TREATMENTS LAB REVIEW: 08/19/20 05:12 08/19/20 05:12 08/19/20 05:12: Sodium 138.3, Potassium 3.73, Chloride 103.7, Carbon Dioxide 32.0 H, Anion Gap 6.33, BUN 18.3, Creatinine 1.00, Estimated GFR (MDRD) 72.00, BUN/Creatinine Ratio 18.30, Glucose 121.4 H, Calcium 8.83, Total Bilirubin 0.75, AST 32.8, ALT 36.4, Alkaline Phosphatase 56.9, Total Protein 5.67 L, Albumin 3.31 L, Globulin 2.36, Albumin/Globulin Ratio 1.40 08/19/20 05:12: WBC 8.37, RBC 4.55 L, Hgb 13.7 L, Hct 40.5 L, MCV 89.0, MCH 30.1, MCHC 33.8, RDW Coeff of Lewis 12.8, Plt Count 139 L, Immature Gran % (Auto) 2.3, Neut % (Auto) 79.5 H, Lymph % (Auto) 12.8, [place] % (Auto) 5.3, Eos % (Auto) 0.0, Baso % (Auto) 0.1, Neut # (Auto) 6.7, Lymph # (Auto) 1.1, [place] # (Auto) 0.4, Eos # (Auto) 0.0, Baso # (Auto) 0.0, Immature Gran # (Auto) 0.2 PLAN: DISCHARGE HOME ACTIVITY: GRADUALLY RESUME TOLERATED; USING OXYGEN AT 2 LITERS REST WHEN TIRED DIET: REGULAR DIET; GOOD NUTRITION AND HYDRATION ENCOURAGED CONTINUE TO USE OXYGEN AT 2 LITERS AT NIGHT AND WITH ACTIVITY CONTINUE TO USE ALBUTEROL NEBS AT LEAST 3 TIMES DAILY AN APPOINTMENT HAS BEEN SCHEDULED WITH DR. MONTGOMERY/ROSCOE ROMERO APRN ON August AT 3:15 PM CODE STATUS: DO NOT INTUBATE; CPR ONLY MR. BLOOD IS ALERT AND ORIENTED X 4. DISCHARGE PLANS HAVE BEEN DISCUSSED WITH THE PATIENT. HE IS AGREEABLE. MR. BLOOD LIVES AT HOME WITH HIS , JOÃO. HE INDICATES HE IS READY TO RETURN HOME. MR. BLOOD IS INDEPENDENT WITH ALL ACTIVITIES OF DAILY LIVING. HE IS AMBULATORY IN THE ROOM AND HALLWAY WITH AND WITHOUT THE USE OF OXYGEN. HE DOES NOT REQUIRE STAFF ASSISTANCE OR USE OF AN ASSISTIVE DEVICE. MR. BLOOD IS CONTINENT OF BOWEL AND BLADDER. HIS APPETITE IS GOOD WITH MEAL INTAKES OF 25-100%; OFTEN DEPENDING ON FOOD ITEMS OFFERED AT MEAL TIME. LIQUID INTAKE IS ADEQUATE. HYDRATION STATUS IS GOOD. SKIN IS INTACT AND FREE OF DECUBITUS ULCERS. BRUISING NOTED TO THE LEFT HAND. MR. BLOOD HAS A NEBULIZER AT HOME. HE ALSO HAS AN OXYGEN CONCENTRATOR AND PORTABILITY SUPPLIED BY [facility]. MR. BLOOD REPORTS USE OF OXYGEN AT NIGHT AND DURING THE DAY FOR SHORTNESS OF AIR. MD ROSCOE HASSAN, TOOLS PROGRAMMER
--- NOTE | 2020-08-20 08:23 | ECHO2D ---
Date of Exam: 08/18/2020 Ordering Physician: DR. LEONEL MONTGOMERY Room #: [id number] Reason for Echo: SOB, RECENT COVID POSITIVE, PNEUMONIA M-Mode Normal Adult Results LV Dimensions Normal Adult Results AoV Opening excursions >1.6 >1.6 LVEDD-base- 3.5-5.8 5.3 Ao root dimensions 2.0-3.7 4.0 LVESD-base- 3.1-4.6 L. Atrium dimensions 1.9-3.8 4.1 Post. Wall thickness 0.8-1.1 1.2 IV septum (thickness) 0.7-1.2 1.3 Post. Wall excursion 0.72-1.3 NORMAL Septal motion NORMAL Systolic motion R. Ventricular cavity 1.5-2.0 4.0 LVEF 60% 58% Paradoxical septal wall motion NORMAL 2-D : 2-D M Mode Echocardiogram was performed using apical four chamber and left parasternal long and short axis views. Mitral, tricuspid and aortic valves appear to be normal. Contractility of the left ventricle seems to be normal, so is the cavity size. ENLARGED LEFT ATRIAL CAVITY AND RIGHT VENTRICLE CAVITIES. DILATED AORTIC ROOT. There is no pericardial effusion. There is no thrombus noted in the left ventricle or left atrial cavity. No mitral valve prolapse noted. M-MODE: MV: NORMAL AV: NORMAL TV: NORMAL PV: CHAMBER SIZE: ENLARGED LEFT ATRIAL AND RIGHT VENTRICLE CAVIITES WALL MOTION: NORMAL PERICARDIUM: NORMAL INTERPRETATION: 1. LEFT VENTRICULAR HYPERTROPHY 2. ENLARGED LEFT ATRIAL AND RIGHT VENTRICLE CAVITIES 3. DILATED AORTIC ROOT (MILD) 4. NORMAL LEFT VENTRICLE CONTRACTILITY AND SIZE OF LEFT VENTRICLE MTDD
--- NOTE | 2020-08-23 08:13 | PN ---
DATE OF SERVICE: 08/17/2020 SUBJECTIVE: The patient was seen and examined with the Nurse Practitioner. The patient's condition seems to be improving. His hydration status has improved. His appetite seems to be improving. His markers for the COVID they are practically normal. TIME SPENT: More than 30 minutes. Plan and coordination of the patient's care discussed in the presence of nurse. MELISSA
--- NOTE | 2020-08-23 11:02 | PN ---
DATE OF SERVICE: 08/18/2020 SUBJECTIVE: 80 year old white male hospitalized with shortness of breath and bilateral pneumonia. The patient's condition has steadily improved. He is feeling somewhat better. REVIEW OF SYSTEMS: CONSTITUTIONAL: No night sweats. No fatigue, malaise, lethargy. No fever or chills. HEENT: Eyes: No visual changes. No eye pain. No eye discharge. ENT: No runny nose. No epistaxis. No sinus pain. No sore throat. No odynophagia. No congestion. RESPIRATORY: No cough, no congestion. No hemoptysis. Less shortness of breath. CARDIOVASCULAR: No angina symptoms. No CHF symptoms. No atypical chest pain for CAD. No palpitations. No PND. No orthopnea. GASTROINTESTINAL: No abdominal pain. No nausea or vomiting. No diarrhea or constipation. No hematemesis. No hematochezia. Appetite has improved. GENITOURINARY: No urgency. No frequency. No dysuria. No hematuria. No obstructive symptoms. No discharge. No pain. No significant abnormal bleeding. MUSCULOSKELETAL: No musculoskeletal pain; no joint swelling. NEUROLOGICAL: No headache. No neck pain. No syncope. No seizures. No dizziness. PSYCHIATRIC: Not anxious. No depression. No suicidal thoughts. No homicidal thoughts. SKIN: No rash. No lesions. No wounds. ENDOCRINE: No unexplained weight loss. No weight gain. HEMATOLOGIC/LYMPHATIC: No anemia. No purpura. No petechiae. No prolonged or excessive bleeding. No palpable lymph nodes. PHYSICAL EXAMINATION: VITAL SIGNS: Temperature 97, pulse 64, respiratory rate 18, blood pressure 118/70 and pulse ox 97% HEENT: Head normocephalic, atraumatic. Eyes: Extraocular muscles are intact. Pupils are equal, round and reactive to light and accommodation. Ears: No lesions. Nose appeared normal. Throat: No exudate or erythema. NECK: Supple. No JVD, no carotid bruit. No lymphadenopathy or thyromegaly. LUNGS: Decreased breath sounds but clear to auscultation. Percussion note normal. Chest symmetrical. HEART: S1, S2, no S3. No murmurs. No cyanosis or clubbing. No ascites. Pulses: Dorsalis pedis and posterior tibial pulses +1 to +2 bilaterally. ABDOMEN: Soft. Nontender. Bowel sounds active. No CVA tenderness. No mass felt. EXTREMITIES: No edema. Full range of motion of all extremities, equal. NEUROLOGIC: No focal deficit. Cranial nerves II through XII are grossly intact. No headache. No double vision. SKIN: Not dry. Intact. Turgor - normal. LYMPHATIC: No palpable lymph nodes/no lymphedema. MUSCULOSKELETAL: Normal joints with no swelling. Muscle tone is normal. LABS: Hgb 13.6, hct 39, WBC 9,000 normal differential, creatinine 0.9, BUN 19, potassium 3.6, C Reactive Protein less than 1, LDH within normal range, Ferritin level elevated. ASSESSMENT: 1. COVID 19 pneumonia with respiratory failure 2. Coronary bypass surgery 3. Dyslipidemia 4. Hypertension PLAN: 1. The patient had echocardiogram which showed LVH, Normal LV contractility and enlarged RV size 2. The patient is to continue on antibiotics, steroids and NEBS treatment 3. The patient seems to be mildly depressed. We will start the patient on Lexapro 4. Continue Ativan 5. The patient advised pulmonary rehab TIME SPENT: More than 30 minutes. Plan and coordination of the patient's care discussed in the presence of nurse. MELISSA
--- NOTE | 2020-09-22 10:58 | DS ---
DATE OF SERVICE: 08/19/20 FINAL DIAGNOSIS: 1. BILATERAL COVID PNEUMONIA 2. SHORTNESS OF BREATH 3. DEHYDRATION 4. HYPOKALEMIA, RESOLVED 5. PERSONAL HISTORY OF COVID-19 (07/23/2020) 6. COVID PNEUMONIA (07/28 AT [facility]) 7. COPD 8. PULMONARY FIBROSIS 9. HYPERTENSION 10. CAD 11. DE, 1982 12. DYSLIPIDEMIA 13. CHRONIC KIDNEY DISEASE, STAGE 3 14. B12 DEFICIENCY 15. HYPOTHYROIDISM 16. HYPERGLYCEMIA 17. ESOPHAGEAL STRICTURE 18. 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 CABG, 2000 21. TKR, RIGHT, 2016 22. HERNIA SURGERY 23. PFT: 05/2015 24. MILD COPD 25. ECHOCARDIOGRAM: COMPLETED 08/18/20, STRESS TEST: 02/23/2020 NO EVIDENCE OF ISCHEMIA LAST VITALS Temp Pulse Resp BP Pulse Ox 98.0 F 69 19 126/80 96 08/19/20 05:13 08/19/20 05:13 08/19/20 08:00 08/19/20 05:13 08/19/20 05:13 DISCHARGE INSTRUCTIONS: 1. DISCHARGE HOME. 2. CONTINUE TO USE OXYGEN AT 2 LITERS AT NIGHT AND WITH ACTIVITY. 3. CONTINUE TO USE ALBUTEROL NEBS AT LEAST 3 TIMES DAILY. 4. AN APPOINTMENT HAS BEEN SCHEDULED WITH DR. MONTGOMERY/ROSCOE ROMERO APRN ON August AT 3:15 PM. MEDICATIONS AT DISCHARGE: Hydrocodone Bitart/Acetaminophen (Hydrocodone Bit/Acetaminophen 7.5/325 Mg Tablet) 1 tab PO TID PRN PRN Reason: Pain Last Admin: 08/18/20 18:21 Dose: 1 tab Documented by: Albuterol Per Nebulizer treatment 1 vial TID Last Admin: Documented by: Amlodipine Besylate (Amlodipine Besylate 5 Mg Tablet) 10 mg PO BEDTIME [facility] Last Admin: 08/18/20 21:00 Dose: 10 mg Documented by: Aspirin (Aspirin 81 Mg Tab.Chew) 81 mg PO DAILYWM [facility] Last Admin: 08/19/20 08:42 Dose: 81 mg Documented by: Atorvastatin Calcium (Atorvastatin Calcium 20 Mg Tablet) 40 mg PO DAILY [facility] Last Admin: 08/19/20 08:41 Dose: 40 mg Documented by: Budesonide/Formoterol Fumarate 160/4.5 Mcg Inhaler) 2 puff IH BID [facility] (NO RX...HOSPITAL SUPPLY) Last Admin: 08/19/20 08:43 Dose: 2 puff Documented by: Cholecalciferol (Cholecalciferol (Vitamin D3) 1,000 Unit Tablet) 5,000 unit PO DAILY [facility] (x 30 days) Last Admin: 08/19/20 08:42 Dose: 5,000 unit Documented by: Fenofibrate (Fenofibrate 160 Mg Tablet) 160 mg PO BEDTIME [facility] Last Admin: 08/18/20 21:00 Dose: 160 mg Documented by: Ferrous Sulfate (Ferrous Sulfate 324 Mg Tablet.Dr) 324 mg PO BIDAC [facility] Last Admin: 08/19/20 05:44 Dose: 324 mg Documented by: Fish Oil (Lynn-3/Dha/Epa/Fish Oil 1,000 Mg Capsule) 2,000 mg PO BID [facility] Last Admin: 08/19/20 08:42 Dose: 2,000 mg Documented by: Levothyroxine Sodium (Levothyroxine Sodium 112 Mcg Tablet) 112 mcg PO QDAC [facility] Last Admin: 08/19/20 05:44 Dose: 112 mcg Documented by: Lorazepam (Lorazepam 1 Mg Tablet) 1 mg PO BEDTIME [facility] Last Admin: 08/18/20 21:00 Dose: 1 mg Documented by: Metoprolol Tartrate (Metoprolol Tartrate 50 Mg Tablet) 100 mg PO BID [facility] Last Admin: 08/19/20 08:42 Dose: 100 mg Documented by: Non-Formulary Medication (Lysine Hcl) 1,000 mg PO BID [facility] Last Admin: 08/19/20 08:46 Dose: Not Given Documented by: Prednisone (Prednisone 20 Mg Tablet) 20 mg PO BIDWM [facility] (as directed) Last Admin: 08/19/20 08:42 Dose: 20 mg Documented by: Tamsulosin HCl (Tamsulosin Hcl 0.4 Mg Cap.Er.24h) 0.8 mg PO BEDTIME [facility] Last Admin: 08/18/20 21:00 Dose: 0.8 mg Documented by: Vitamin E (Vitamin E (Dl,Tocopheryl Acet) 400 Unit Capsule) 400 unit PO DAILY [facility] Last Admin: 08/19/20 08:42 Dose: 400 unit Documented by: Zinc Sulfate (Zinc Sulfate 220 Mg Capsule) 220 mg PO DAILY [facility] (x 30 days) Last Admin: 08/19/20 08:41 Dose: 220 mg Documented by: NEW PRESCRIPTIONS: LEVAQUIN 500 MG DAILY FOR 3 DAYS PREDNISONE 20 MG BID FOR 3 DAYS, THEN 20 MG DAILY FOR 3 DAYS SYMBICORT INHALER 2 PUFFS BID (HOSPITAL SUPPLY; NO RX) ALBUTEROL 0.083% FOR NEBULIZER TID (90 VIALS) VITAMIN D 5000 UNITS DAILY FOR 30 DAYS ZINC SULFATE 220 DAILY FOR 30 DAYS DISCONTINUED MEDICATIONS: NONE DIET INSTRUCTIONS: REGULAR DIET; GOOD NUTRITION AND HYDRATION ENCOURAGED ACTIVITY: GRADUALLY RESUME TOLERATED; USING OXYGEN AT 2 LITERS REST WHEN TIRED SMOKING: NOT APPLICABLE DISEASE SPECIFIC EDUCATION: COVID 19 PNEUMONIA PRESCRIPTIONS; INCLUDING PREDNISONE AND RISK OF GI IRRITATION APPOINTMENT USE OF OXYGEN/NEBULIZER TREATMENTS HOSPITAL COURSE: This is a 80-year-old white male who was admitted after being seen in our office. He had previously been in [facility] with Covid pneumonia. He had bilateral pneumonia. He has underlying history of COPD and had oxygen at home p.r.n. He is now oxygen dependent at this point. He presented extremely short of breath, weak, pale. He was admitted for further oxygen saturation, was 88% in our office. He was admitted for further treatment of his pneumonia along with shortness of breath and dehydration. On admission kidney function was elevated along with low potassium. We started NS IV at 75 cc/hr. We also placed him on Levaquin 750 IV daily and started him on Solu-Medrol 125 mg IV q.6. Also started him on Symbicort inhaler along with Albuterol inhaler to be given scheduled. Respiratory panel by PCR was still positive for Covid pneumonia. His initial positive test was 219 so he is out of quarantine time. He has been afebrile. Again, I believe this is residual respiratory distress from the Covid pneumonia. Over the course of several days, he steadily improved with the IV steroids and further treatment with the antibiotics. He began to feel stronger. Chest x-ray did show bilateral pneumonia. The next chest x-ray prior to discharge did show improvement. Kidney function was elevated at first showing dehydration. This subsequently has improved over the course of our hospital stay. He is going to go home with Levaquin 500 daily for three days along with Prednisone 20 b.i.d. for three days then 20 daily for three days. He is to have a Symbicort inhaler to use two puffs twice a day at home. This was sent home with him from the hospital. He also has a nebulizer machine previously at home which he is supposed to do t.i.d. Will also continue Vitamin D and Zinc p.o. We will discharge him in stable condition. He is to follow up with us next week. We will follow closely. TIME SPENT: More than 60 minutes. MELISSA
== END 2020-08-19 10:45 | disposition home or self-care (01) | DRG 640 ==
LOC: SCU 14:07 → MEDSURG A 08-16 09:18
PROVIDERS: ADMIT Internal Medicine; ATTEND Internal Medicine

== ENCOUNTER 2022-05-18 12:26 | Inpatient (IN) ==
[2022-05-18] MEDS ORDERED: TYLENOL PO PRN (14:27)
[2022-05-18] MEDS ORDERED: ATROPINE SULFATE PFS IVP PRN (14:27)
[2022-05-18] MEDS ORDERED: NITROSTAT SL PRN (14:27)
[2022-05-18] MEDS ORDERED: PHENERGAN WITH CODEINE 6.25/10 MG/5 ML PO PRN (14:41)
[2022-05-18 14:48] LABS: BASOPHILS % (AUTO) 0.2 % (0.0-3.0); EOSINOPHILS % (AUTO) 0.1 % (0.0-7.0); HEMATOCRIT 49.3 % (42.0-52.0); HEMOGLOBIN 16.5 g/dl (14.0-18.0); IMMATURE GRANULOCYTE # (AUTO) 0.2 (0.0-1.0); IMMATURE GRANULOCYTE % (AUTO) 1.7 % (0.0-5.0); LYMPHOCYTES # (AUTO) 2.4 K/uL (0.60-3.4); LYMPHOCYTES % (AUTO) 19.4 (10.0-50.0); MEAN CORPUSCULAR HEMOGLOBIN 31.2 pg (27.0-31.0); MEAN CORPUSCULAR HGB CONC 33.5 (31.8-35.4); MEAN CORPUSCULAR VOLUME 93.2 fl (80.0-94.0); MONOCYTES # (AUTO) 0.9 K/uL (0.4-2.0); MONOCYTES % (AUTO) 7.3 (0-10); NEUTROPHILS # (AUTO) 8.9 K/ul (2.0-6.9); NEUTROPHILS % (AUTO) 71.3 % (42.2-75.2); PLATELET COUNT 268 10^3/uL (140-440); RDW COEFFICIENT OF VARIATION 12.7 % (11.6-14.8); RED BLOOD COUNT 5.29 10^6/ul (4.70-6.10); WHITE BLOOD COUNT 12.49 K/ul (4.2-10.2)
[2022-05-18 14:55] LABS: ABG O2 HGB 92.9 % (95-100); ABG PH 7.46 (7.35-7.45); BEecf 0.4 (-2.0-3.0); COHb 2.2 (0.5-1.5); HCO3 24.2 (21-28); MetHb 0.9 (0-1.5); TCO2 25.2 (19-24); tHb 15.3 g/dl (11.7-17.4)
[2022-05-18] MEDS ORDERED: SODIUM CHLORIDE 2,000 ML IV SCH (15:00)
[2022-05-18 15:02] LABS: ALANINE AMINOTRANSFERASE 27.2 U/L (0-50); ALKALINE PHOSPHATASE 45.6 U/L (56-119); ASPARTATE AMINO TRANSFERASE 32.6 U/L (17-59); BILIRUBIN,TOTAL 0.83 mg/dL (0.2-1.3); BLOOD UREA NITROGEN 23.2 mg/dL (9-20); CALCIUM 9.76 mg/dL (8.4-10.2); CHLORIDE 105.7 mmol/L (98-107); CREATINE KINASE 55.7 U/L (55-170); CREATININE 1.29 mg/dL (0.60-1.10); GLUCOSE 95.7 mg/dL (74-106); POTASSIUM 3.15 mmol/L (3.5-5.1); SODIUM 144.3 mmol/L (134.5-145); TOTAL PROTEIN 8.33 g/dL (6.3-8.2)
[2022-05-18 15:13] VITALS: BMI 21.2
[2022-05-18 15:16] LABS: TROPONIN I < 0.012 ng/ml (0.0000-0.120)
[2022-05-18] MEDS: ROCEPHIN 1 GM/50 ML D5W 1 GM/50 ML BAG IV SCH (16:52)
[2022-05-18] MEDS: SOLU-CORTEF 250 MG IVP SCH ×2 (16:52→21:41)
--- NOTE | 2022-05-18 16:58 | CT ---
EXAM: CHEST CT WITH AND WITHOUT INTRAVENOUS CONTRAST HISTORY: Shortness of breath. TECHNIQUE: CT acquisition of the chest from the thoracic inlet to the upper abdomen without and with IV contrast administration. 2-D coronal and sagittal reformatted images were obtained from the axial source images. IV Contrast: Administered. CT Dose Reduction Techniques Performed: Yes. COMPARISON: Noncontrast CT scan of the chest dated 02/06/2017 FINDINGS: Lines, Tubes, Devices: None. Lung Parenchyma and Airways: Central airways are patent without endobronchial lesion. Emphysematous changes bilaterally with upper zone predominance consistent with centrilobular emphysema, similar to the prior study. Mild scarring at the lung bases. No other airspace or interstitial disease. No pu lmonary nodule or mass lesion. Pleural Space: No pleural effusion or thickening. No pneumothorax. Thoracic Inlet, Mediastinum, and Nancy: Thyroid gland is normal. No lymphadenopathy. Heart, Vessels, and Pericardium: The main pulmonary artery is normal caliber. There is no central pu lmonary embolism. The thoracic aorta is not dilated. Calcification in the aorta consistent with ath erosclerosis. Extensive coronary artery calcification. Sternal wires and mediastinal clips from pre vious CABG. The heart chambers are not enlarged. There is no pericardial effusion or thickening. Bones and Soft Tissues: Mild degenerative changes of the spine. No fracture or lytic lesion. Chest wall soft tissues are unremarkable. Upper Abdomen: The visualized portions of the liver, spleen, and adrenals are normal. IMPRESSION: 1. Centrilobular emphysema, unchanged. 2. Mild scarring at the lung bases. 3. Atherosclerosis and coronary artery calcification. 4. Previous CABG. 5. Mild degenerative changes of the spine. 6. Otherwise unremarkable noncontrast and contrast enhanced CT scan of the chest. All CT scans are performed using dose optimization techniques as appropriate to the performed exam an d include at least one of the following: Automated exposure control, adjustment of the mA and/or kV according t o size, and the use of iterative reconstruction technique.
[2022-05-18] MEDS: SODIUM CHLORIDE 1,000 ML IV SCH (17:08)
[2022-05-18] MEDS: K-DUR PO SCH (18:21)
[2022-05-18 19:18] LABS: BILIRUBIN,URINE Negative (NEGATIVE); CLARITY,URINE Clear (CLEAR); COLOR,URINE Yellow (YELLOW); GLUCOSE, URINE (UA) Negative (NEGATIVE); KETONES,URINE Negative (NEGATIVE); LEUKOCYTE ESTERASE ,URINE Negative (NEGATIVE); NITRITE,URINE Negative (NEGATIVE); PROTEIN,URINE Negative (NEGATIVE); URINE, BLOOD Negative (NEGATIVE); UROBILINOGEN,URINE 0.2 (0.2)
[2022-05-18] MEDS ORDERED: ALBUTEROL 0.083% NEB NEB ONE (19:45)
[2022-05-18] MEDS ORDERED: PULMICORT 0.5 MG/2 ML NEB ONE (19:46)
[2022-05-18] MEDS: ALBUTEROL 0.083% NEB NEB SCH (19:57)
[2022-05-18] MEDS: PULMICORT 0.5 MG/2 ML NEB SCH ×2 (19:57→21:09)
[2022-05-18] MEDS: OMEGA-3 FISH OIL PO SCH (20:58)
[2022-05-18] MEDS: NORCO 7.5-325 PO PRN (20:58)
[2022-05-18] MEDS: LOPRESSOR PO SCH (20:58)
[2022-05-18] MEDS: FLOMAX PO SCH (20:58)
[2022-05-18] MEDS: TRIGLIDE PO SCH (20:59)
[2022-05-18] MEDS: NORVASC PO SCH (20:59)
[2022-05-18] MEDS: ATIVAN PO SCH (20:59)
[2022-05-18] MEDS: FERROUS SULFATE PO SCH (20:59)
[2022-05-18] MEDS ORDERED: ALBUTEROL 0.083% NEB NEB SCH ×2 (21:00→22:00)
[2022-05-18] MEDS: DOXY-100 100 MG in SODIUM CHLORIDE 100ML 100 ML IV SCH (21:06)
[2022-05-18 23:39] LABS: CREATINE KINASE 49.7 U/L (55-170)
[2022-05-18 23:52] LABS: TROPONIN I < 0.012 ng/ml (0.0000-0.120)
[2022-05-19] MEDS: ALBUTEROL 0.083% NEB NEB SCH ×3 (04:40→19:40)
[2022-05-19] MEDS: PULMICORT 0.5 MG/2 ML NEB SCH ×2 (04:40→19:40)
[2022-05-19 05:12] LABS: BASOPHILS % (AUTO) 0.3 % (0.0-3.0); HEMATOCRIT 44.1 % (42.0-52.0); HEMOGLOBIN 14.6 g/dl (14.0-18.0); IMMATURE GRANULOCYTE # (AUTO) 0.2 (0.0-1.0); IMMATURE GRANULOCYTE % (AUTO) 2.2 % (0.0-5.0); LYMPHOCYTES % (AUTO) 12.7 (10.0-50.0); MEAN CORPUSCULAR HEMOGLOBIN 30.9 pg (27.0-31.0); MEAN CORPUSCULAR HGB CONC 33.1 (31.8-35.4); MEAN CORPUSCULAR VOLUME 93.2 fl (80.0-94.0); MONOCYTES # (AUTO) 0.3 K/uL (0.4-2.0); MONOCYTES % (AUTO) 4.1 (0-10); NEUTROPHILS # (AUTO) 6.1 K/ul (2.0-6.9); NEUTROPHILS % (AUTO) 80.7 % (42.2-75.2); PLATELET COUNT 234 10^3/uL (140-440); RDW COEFFICIENT OF VARIATION 12.6 % (11.6-14.8); RED BLOOD COUNT 4.73 10^6/ul (4.70-6.10); WHITE BLOOD COUNT 7.57 K/ul (4.2-10.2)
[2022-05-19 05:28] LABS: ALANINE AMINOTRANSFERASE 24.2 U/L (0-50); ALBUMIN 3.99 g/dL (3.5-5.0); ALKALINE PHOSPHATASE 37.8 U/L (56-119); ASPARTATE AMINO TRANSFERASE 24.2 U/L (17-59); BILIRUBIN,TOTAL 0.57 mg/dL (0.2-1.3); BLOOD UREA NITROGEN 20.6 mg/dL (9-20); CALCIUM 8.86 mg/dL (8.4-10.2); CHLORIDE 110.2 mmol/L (98-107); CREATININE 1.08 mg/dL (0.60-1.10); GLUCOSE 142.4 mg/dL (74-106); POTASSIUM 4.15 mmol/L (3.5-5.1); SODIUM 143.1 mmol/L (134.5-145); TOTAL PROTEIN 6.6 g/dL (6.3-8.2)
[2022-05-19] MEDS: SOLU-CORTEF 250 MG IVP SCH ×3 (05:31→21:23)
[2022-05-19] MEDS: SYNTHROID PO SCH (05:33)
[2022-05-19] MEDS: SODIUM CHLORIDE 1,000 ML IV SCH (06:01)
[2022-05-19] MEDS: ASPIRIN CHEWABLE PO SCH (08:15)
[2022-05-19] MEDS: LOPRESSOR PO SCH ×2 (08:16→21:22)
[2022-05-19] MEDS: VITAMIN E PO SCH (08:16)
[2022-05-19] MEDS: VITAMIN D PO SCH (08:16)
[2022-05-19] MEDS: ROCEPHIN 1 GM/50 ML D5W 1 GM/50 ML BAG IV SCH (08:17)
[2022-05-19] MEDS: LIPITOR PO SCH (08:17)
[2022-05-19] MEDS: K-DUR PO SCH ×2 (08:17→17:37)
[2022-05-19] MEDS: OMEGA-3 FISH OIL PO SCH ×2 (08:17→21:22)
[2022-05-19] MEDS: FERROUS SULFATE PO SCH ×2 (08:17→21:31)
[2022-05-19] MEDS: FLOMAX PO SCH ×2 (08:17→21:22)
[2022-05-19] MEDS: MIRALAX PO SCH (08:35)
[2022-05-19] MEDS: DOXY-100 100 MG in SODIUM CHLORIDE 100ML 100 ML IV SCH (10:55)
[2022-05-19] MEDS: NORCO 7.5-325 PO PRN ×2 (13:04→22:39)
[2022-05-19] MEDS: NON-FORMULARY MEDICATION (Lysine Hcl 500 MG tablet) PO SCH ×2 (18:01→21:34)
[2022-05-19] MEDS: TRIGLIDE PO SCH (21:21)
[2022-05-19] MEDS: NORVASC PO SCH (21:21)
[2022-05-19] MEDS: ATIVAN PO SCH (21:21)
[2022-05-19] MEDS: DOXYCYCLINE HYCLATE PO SCH (21:22)
[2022-05-20] MEDS: PULMICORT 0.5 MG/2 ML NEB SCH ×2 (05:05→20:10)
[2022-05-20] MEDS: ALBUTEROL 0.083% NEB NEB SCH ×3 (05:05→20:10)
[2022-05-20 05:13] LABS: BASOPHILS % (AUTO) 0.1 % (0.0-3.0); HEMATOCRIT 42.7 % (42.0-52.0); HEMOGLOBIN 14.5 g/dl (14.0-18.0); IMMATURE GRANULOCYTE # (AUTO) 0.2 (0.0-1.0); IMMATURE GRANULOCYTE % (AUTO) 1.5 % (0.0-5.0); LYMPHOCYTES # (AUTO) 1.2 K/uL (0.60-3.4); LYMPHOCYTES % (AUTO) 10.7 (10.0-50.0); MEAN CORPUSCULAR HEMOGLOBIN 31.1 pg (27.0-31.0); MEAN CORPUSCULAR VOLUME 91.6 fl (80.0-94.0); MONOCYTES # (AUTO) 0.5 K/uL (0.4-2.0); MONOCYTES % (AUTO) 4.7 (0-10); NEUTROPHILS # (AUTO) 9.1 K/ul (2.0-6.9); PLATELET COUNT 231 10^3/uL (140-440); RDW COEFFICIENT OF VARIATION 12.5 % (11.6-14.8); RED BLOOD COUNT 4.66 10^6/ul (4.70-6.10); WHITE BLOOD COUNT 10.96 K/ul (4.2-10.2)
[2022-05-20 05:29] LABS: ALANINE AMINOTRANSFERASE 20.5 U/L (0-50); ALBUMIN 3.7 g/dL (3.5-5.0); ALKALINE PHOSPHATASE 36.4 U/L (56-119); ASPARTATE AMINO TRANSFERASE 19.8 U/L (17-59); BILIRUBIN,TOTAL 0.61 mg/dL (0.2-1.3); BLOOD UREA NITROGEN 18.4 mg/dL (9-20); CALCIUM 8.89 mg/dL (8.4-10.2); CARBON DIOXIDE 26.1 mmol/L (22-30.0); CHLORIDE 110.1 mmol/L (98-107); CREATININE 0.92 mg/dL (0.60-1.10); GLUCOSE 137.7 mg/dL (74-106); POTASSIUM 4.16 mmol/L (3.5-5.1); SODIUM 140.9 mmol/L (134.5-145); TOTAL PROTEIN 6.17 g/dL (6.3-8.2)
[2022-05-20] MEDS: SOLU-CORTEF 250 MG IVP SCH ×3 (05:52→20:33)
[2022-05-20] MEDS: SYNTHROID PO SCH (05:53)
[2022-05-20] MEDS: NORCO 7.5-325 PO PRN ×2 (07:22→20:39)
[2022-05-20] MEDS: LIDOCAINE HCL 1% SDV IM SCH (09:55)
[2022-05-20] MEDS: ROCEPHIN 1 GM VIAL IM SCH (09:55)
[2022-05-20] MEDS: FERROUS SULFATE PO SCH ×2 (09:58→20:32)
[2022-05-20] MEDS: VITAMIN E PO SCH (09:58)
[2022-05-20] MEDS: MIRALAX PO SCH ×2 (09:58→14:26)
[2022-05-20] MEDS: OMEGA-3 FISH OIL PO SCH ×2 (09:59→20:29)
[2022-05-20] MEDS: ASPIRIN CHEWABLE PO SCH (09:59)
[2022-05-20] MEDS: K-DUR PO SCH ×2 (09:59→17:04)
[2022-05-20] MEDS: LOPRESSOR PO SCH ×2 (10:00→20:30)
[2022-05-20] MEDS: LIPITOR PO SCH (10:00)
[2022-05-20] MEDS: VITAMIN D PO SCH (10:00)
[2022-05-20] MEDS: DOXYCYCLINE HYCLATE PO SCH ×2 (10:00→20:33)
[2022-05-20] MEDS: FLOMAX PO SCH ×2 (10:00→20:32)
[2022-05-20] MEDS: NON-FORMULARY MEDICATION (Lysine Hcl 500 MG tablet) PO SCH ×2 (10:00→21:30)
[2022-05-20] MEDS: NORVASC PO SCH (20:31)
[2022-05-20] MEDS: ATIVAN PO SCH (20:31)
[2022-05-20] MEDS: TRIGLIDE PO SCH (20:32)
[2022-05-21] MEDS: PULMICORT 0.5 MG/2 ML NEB SCH ×2 (04:52→19:30)
[2022-05-21] MEDS: ALBUTEROL 0.083% NEB NEB SCH ×3 (04:52→19:30)
[2022-05-21 05:35] LABS: BASOPHILS % (AUTO) 0.2 % (0.0-3.0); HEMATOCRIT 46.5 % (42.0-52.0); HEMOGLOBIN 15.3 g/dl (14.0-18.0); IMMATURE GRANULOCYTE # (AUTO) 0.2 (0.0-1.0); IMMATURE GRANULOCYTE % (AUTO) 1.2 % (0.0-5.0); LYMPHOCYTES # (AUTO) 1.4 K/uL (0.60-3.4); LYMPHOCYTES % (AUTO) 10.2 (10.0-50.0); MEAN CORPUSCULAR HEMOGLOBIN 30.5 pg (27.0-31.0); MEAN CORPUSCULAR HGB CONC 32.9 (31.8-35.4); MEAN CORPUSCULAR VOLUME 92.8 fl (80.0-94.0); MONOCYTES # (AUTO) 0.8 K/uL (0.4-2.0); MONOCYTES % (AUTO) 5.8 (0-10); NEUTROPHILS # (AUTO) 11.5 K/ul (2.0-6.9); NEUTROPHILS % (AUTO) 82.6 % (42.2-75.2); PLATELET COUNT 264 10^3/uL (140-440); RDW COEFFICIENT OF VARIATION 12.9 % (11.6-14.8); RED BLOOD COUNT 5.01 10^6/ul (4.70-6.10); WHITE BLOOD COUNT 13.91 K/ul (4.2-10.2)
[2022-05-21] MEDS: SYNTHROID PO SCH (05:40)
[2022-05-21] MEDS: SOLU-CORTEF 250 MG IVP SCH ×2 (05:40→12:36)
[2022-05-21 05:49] LABS: ALANINE AMINOTRANSFERASE 22.5 U/L (0-50); ALBUMIN 4.08 g/dL (3.5-5.0); ALKALINE PHOSPHATASE 44.8 U/L (56-119); BILIRUBIN,TOTAL 0.72 mg/dL (0.2-1.3); BLOOD UREA NITROGEN 21.8 mg/dL (9-20); CALCIUM 9.12 mg/dL (8.4-10.2); CARBON DIOXIDE 28.3 mmol/L (22-30.0); CHLORIDE 108.2 mmol/L (98-107); GLUCOSE 125.6 mg/dL (74-106); POTASSIUM 3.78 mmol/L (3.5-5.1); SODIUM 142.8 mmol/L (134.5-145); TOTAL PROTEIN 6.64 g/dL (6.3-8.2)
[2022-05-21] MEDS: MIRALAX PO SCH (08:52)
[2022-05-21] MEDS: OMEGA-3 FISH OIL PO SCH ×2 (08:52→20:28)
[2022-05-21] MEDS: LIPITOR PO SCH (08:53)
[2022-05-21] MEDS: VITAMIN D PO SCH (08:53)
[2022-05-21] MEDS: LOPRESSOR PO SCH ×2 (08:53→20:28)
[2022-05-21] MEDS: VITAMIN E PO SCH (08:53)
[2022-05-21] MEDS: ASPIRIN CHEWABLE PO SCH (08:53)
[2022-05-21] MEDS: DOXYCYCLINE HYCLATE PO SCH ×2 (08:53→20:27)
[2022-05-21] MEDS: LIDOCAINE HCL 1% SDV IM SCH (08:54)
[2022-05-21] MEDS: K-DUR PO SCH ×2 (08:54→17:27)
[2022-05-21] MEDS: ROCEPHIN 1 GM VIAL IM SCH (08:54)
[2022-05-21] MEDS: FERROUS SULFATE PO SCH ×2 (08:54→20:28)
[2022-05-21] MEDS: FLOMAX PO SCH ×2 (08:54→20:27)
[2022-05-21] MEDS: NON-FORMULARY MEDICATION (Lysine Hcl 500 MG tablet) PO SCH ×2 (08:55→21:40)
[2022-05-21] MEDS: PREDNISONE PO SCH (17:27)
[2022-05-21] MEDS: TRIGLIDE PO SCH (20:28)
[2022-05-21] MEDS: NORVASC PO SCH (20:28)
[2022-05-21] MEDS: NORCO 7.5-325 PO PRN (20:29)
[2022-05-21] MEDS: ATIVAN PO SCH (20:29)
[2022-05-22] MEDS: PULMICORT 0.5 MG/2 ML NEB SCH (04:42)
[2022-05-22] MEDS: ALBUTEROL 0.083% NEB NEB SCH ×2 (04:42→14:01)
[2022-05-22 05:16] VITALS: BP 118/64; TEMP 97.2
[2022-05-22] MEDS: SYNTHROID PO SCH (05:32)
[2022-05-22] MEDS: KEFLEX PO SCH ×2 (05:32→13:31)
[2022-05-22 05:39] LABS: BASOPHILS % (AUTO) 0.1 % (0.0-3.0); HEMATOCRIT 40.3 % (42.0-52.0); HEMOGLOBIN 13.5 g/dl (14.0-18.0); IMMATURE GRANULOCYTE # (AUTO) 0.1 (0.0-1.0); IMMATURE GRANULOCYTE % (AUTO) 0.9 % (0.0-5.0); LYMPHOCYTES # (AUTO) 1.2 K/uL (0.60-3.4); LYMPHOCYTES % (AUTO) 12.2 (10.0-50.0); MEAN CORPUSCULAR HEMOGLOBIN 31.4 pg (27.0-31.0); MEAN CORPUSCULAR HGB CONC 33.5 (31.8-35.4); MEAN CORPUSCULAR VOLUME 93.7 fl (80.0-94.0); MONOCYTES # (AUTO) 0.7 K/uL (0.4-2.0); NEUTROPHILS # (AUTO) 7.7 K/ul (2.0-6.9); NEUTROPHILS % (AUTO) 79.8 % (42.2-75.2); PLATELET COUNT 204 10^3/uL (140-440); RDW COEFFICIENT OF VARIATION 12.9 % (11.6-14.8); WHITE BLOOD COUNT 9.61 K/ul (4.2-10.2)
[2022-05-22 05:52] LABS: ALANINE AMINOTRANSFERASE 19.7 U/L (0-50); ALBUMIN 3.27 g/dL (3.5-5.0); ASPARTATE AMINO TRANSFERASE 18.2 U/L (17-59); BILIRUBIN,TOTAL 0.61 mg/dL (0.2-1.3); CALCIUM 8.7 mg/dL (8.4-10.2); CARBON DIOXIDE 29.2 mmol/L (22-30.0); CHLORIDE 110.1 mmol/L (98-107); CREATININE 1.07 mg/dL (0.60-1.10); GLUCOSE 133.7 mg/dL (74-106); POTASSIUM 4.19 mmol/L (3.5-5.1); SODIUM 141.1 mmol/L (134.5-145); TOTAL PROTEIN 5.53 g/dL (6.3-8.2)
--- NOTE | 2022-05-22 08:56 | ECHO2D ---
Date of Exam: 05/21/2022 Ordering Physician: DR. LEONEL MONTGOMERY Room #: [id number] Reason for Echo: SOB, STENTS 7-8 YRS AGO, HEART SURGERY 2000 M-Mode Normal Adult Results LV Dimensions Normal Adult Results AoV Opening excursions >1.6 >1.6 LVEDD-base- 3.5-5.8 5.3 Ao root dimensions 2.0-3.7 4.1 LVESD-base- 3.1-4.6 L. Atrium dimensions 1.9-3.8 4.1 Post. Wall thickness 0.8-1.1 1.3 IV septum (thickness) 0.7-1.2 1.4 Post. Wall excursion 0.72-1.3 NORMAL Septal motion NORMAL Systolic motion R. Ventricular cavity 1.5-2.0 3.0 LVEF 60% 59% Paradoxical septal wall motion NORMAL 2-D : 2-D M Mode Echocardiogram was performed using apical four chamber and left parasternal long and short axis views. Mitral, tricuspid and aortic valves appear to be normal. Contractility of the left ventricle seems to be normal, so is the cavity size. ENLARGED LEFT ATRIAL CAVITY AND RIGHT VENTRICLE CAVITY. DILATED AORTIC ROOT. There is no pericardial effusion. There is no thrombus noted in the left ventricle or left atrial cavity. M-MODE: MV: NORMAL AV: NORMAL TV: NORMAL PV: CHAMBER SIZE: ENLARGED LEFT ATRIAL AND RIGHT VENTRICLE CAVITIES--DILATED AORTIC ROOT WALL MOTION: NORMAL PERICARDIUM: NORMAL INTERPRETATION: 1. LEFT VENTRICLE HYPERTROPHY WITH ENLARGED LEFT ATRIAL CAVITY 2. MILDLY DILATED AORTIC ROOT 3. NORMAL LEFT VENTRICLE CONTRACTILITY AND SIZE OF LEFT VENTRICLE 4. NORMAL VALVES UNCHANGED 08/22 ECHO MTDD
[2022-05-22] MEDS: VITAMIN D PO SCH (09:59)
[2022-05-22] MEDS: MIRALAX PO SCH (09:59)
[2022-05-22] MEDS: ASPIRIN CHEWABLE PO SCH (10:00)
[2022-05-22] MEDS: DOXYCYCLINE HYCLATE PO SCH (10:00)
[2022-05-22] MEDS: LOPRESSOR PO SCH (10:00)
[2022-05-22] MEDS: VITAMIN E PO SCH (10:01)
[2022-05-22] MEDS: FERROUS SULFATE PO SCH (10:01)
[2022-05-22] MEDS: LIPITOR PO SCH (10:01)
[2022-05-22] MEDS: K-DUR PO SCH (10:02)
[2022-05-22] MEDS: OMEGA-3 FISH OIL PO SCH (10:02)
[2022-05-22] MEDS: FLOMAX PO SCH (10:02)
[2022-05-22] MEDS: NON-FORMULARY MEDICATION (Lysine Hcl 500 MG tablet) PO SCH (10:03)
[2022-05-22] MEDS: PREDNISONE PO SCH (10:03)
--- NOTE | 2022-05-22 10:03 | PCM.PROG ---
Attending Provider: ATTENDING PROVIDER: Dr. LEONEL MONTGOMERY MD This patient is seen with Debi Munguia, Nurse Practitioner. DATE OF SERVICE: 05/22/22 SUBJECTIVE: This 81 year old /WHITE M was hospitalized 05/18/22. The patient is eating well. Starting to feel much better. Ready for discharge. REVIEW OF SYSTEMS: CONSTITUTIONAL: No night sweats. Fatigue. No fever or chills. HEENT: Eyes: No visual changes. No eye pain. No eye discharge. ENT: No runny nose. No epistaxis. No sinus pain. No odynophagia. No congestion. RESPIRATORY: Cough, no congestion. No hemoptysis. No shortness of breath. CARDIOVASCULAR: No angina symptoms. No CHF symptoms. No atypical chest pain for CAD. No palpitations. No orthopnea.. GASTROINTESTINAL: No abdominal pain. No nausea or vomiting. No diarrhea or constipation. No hematemesis. No hematochezia. GENITOURINARY: No urgency. No frequency. No dysuria. No hematuria. No obstructive symptoms. No discharge. No pain. No significant abnormal bleeding. MUSCULOSKELETAL: No musculoskeletal pain; no joint swelling. NEUROLOGICAL: Awake, alert, oriented to time, place and person. No headache. No neck pain. No syncope. No seizures. No dizziness. PSYCHIATRIC: Not anxious. No depression. No suicidal thoughts. No homicidal thoughts. SKIN: No rash. No lesions. No wounds. ENDOCRINE: No unexplained weight loss. No weight gain. HEMATOLOGIC/LYMPHATIC: No anemia. No purpura. No petechiae. No prolonged or excessive bleeding. No palpable lymph nodes. PHYSICAL EXAMINATION: GENERAL: The patient is awake, alert and oriented, sitting in bed in no distress. VITAL SIGNS: Temperature 97.2 F, Pulse 85, Respiratory Rate 18, BP 118/64, Pulse Ox 98% HEENT: Head normocephalic, atraumatic. Eyes: Extraocular muscles are intact. Pupils are equal, round and reactive to light and accommodation. Ears: No lesions. Nose appeared normal. Throat: No exudate or erythema. NECK: Supple. No JVD, no carotid bruit. No lymphadenopathy or thyromegaly. LUNGS: Diminished breath sounds, improved Clear to auscultation. Percussion n ote normal. Chest symmetrical. HEART: S1, S2, no S3. No murmurs. No cyanosis or clubbing. No ascites. Pulses: Dorsalis pedis and posterior tibial pulses +1 to +2 both sides. ABDOMEN: Soft. Non-tender. Bowel sounds active. No CVA tenderness. No mass felt. EXTREMITIES: No edema. Full range of motion of all extremities, equal. NEUROLOGIC: No focal deficit. Cranial nerves II through XII are grossly intact. No headache. No double vision. SKIN: Not dry. Intact. Turgor-normal. LYMPHATIC: No palpable lymph nodes/no lymphedema. MUSCULOSKELETAL: Normal joints with no swelling. Muscle tone is normal. LAB REVIEW: 05/22/22 04:54 05/22/22 04:54 05/22/22 04:54: Sodium 141.1, Potassium 4.19, Chloride 110.1 H, Carbon Dioxide 29.2, Anion Gap 5.99, BUN 25.0 H, Creatinine 1.07, Estimated GFR (MDRD) 66.00, BUN/Creatinine Ratio 23.36, Glucose 133.7 H, Calcium 8.70, Total Bilirubin 0.61, AST 18.2, ALT 19.7, Alkaline Phosphatase 48.0 L, Total Protein 5.53 L, Albumin 3.27 L, Globulin 2.26, Albumin/Globulin Ratio 1.44 05/22/22 04:54: WBC 9.61, RBC 4.30 L, Hgb 13.5 L, Hct 40.3 L D, MCV 93.7, MCH 31.4 H, MCHC 33.5, RDW Coeff of Lewis 12.9, Plt Count 204, Immature Gran % (Auto) 0.9, Neut % (Auto) 79.8 H, Lymph % (Auto) 12.2, [place] % (Auto) 7.0, Eos % (Auto) 0.0, Baso % (Auto) 0.1, Neut # (Auto) 7.7 H, Lymph # (Auto) 1.2, [place] # (Auto) 0.7, Eos # (Auto) 0.0, Baso # (Auto) 0.0, Immature Gran # (Auto) 0.1 ASSESSMENT: Please see below. 1. Influenza A 2. Acute pneumonitis 3. COPD 4. Hypertension PLAN: 1. Discharge home 2. The patient has NEB machine at home to use TID 3. Keflex 500mg TID for 7 days 4. Doxycydline 100mg for 7 days BID 5. Prednisone 10mg BID for 4 days then daily for 3 6. Continue to rest at home 7. Followup in office next week 8. Phenergan with codeine syrup one teaspoon Q 6 hours PRN, 4 ounces. Plan and coordination of the patient's care discussed in the presence of Share Holder and nurse. SCRIBED BY: BESS CANTU Bread Pan Greaser scribed while in presence of service performed by Dr. Montgomery/Debi Munguia APRN on 05/22/22 ([id number])
--- NOTE | 2022-05-22 10:59 | DS ---
DATE OF SERVICE: 05/22/22 FINAL DIAGNOSIS: 1. Influenza A 2. Acute pneumonitis 3. COPD 4. Hypertension DISCHARGE INSTRUCTIONS: Discharge home today per Dr. Dobbins/Debi Munguia NP. Continue all other home medications as prior admission. Followup appointment with Dr. Andersen's office June 01 at 1:15pm. MEDICATIONS AT DISCHARGE: Lorazepam 1mg PO bedtime Tamsulosin 0.4mg PO Q 12 hours Fish oil 2000mg PO BID Lopressor 100mg PO BID Hydrocodone-acetaminophen 7.5-325mg PO TID PRN Ferrous sulfate 325mg PO BID Fenofibrate 160mg PO Bedtime Norvasc 10mg PO bedtime Aspirin 81mg PO daily Vitamin E 400 unit PO daily Lipitor 40mg PO daily Levothyroxine 112mcg pO daily Albuterol 2.5mg inhalation TID Vitamin D3 2000 unit PO daily NEW PRESCRIPTIONS: 1. KEFLEX 500MG: TAKE 1 CAPSULE THREE TIMES A DAY FOR 7 DAYS 2. DOXYCYCLINE 100MG: TAKE 1 CAPSULE TWICE DAILY FOR 7 DAYS 3. PREDNISONE 10MG: TAKE 10MG TWICE DAILY FOR 4 DAYS, THEN 10MG DAILY FOR 3 DAYS 4. PHENERGAN WITH CODEINE COUGH SYRUP: TAKE 1 TSP EVERY 6 HOURS NEEDED 5: USE YOUR NEBS AT HOME 3 TIMES DAY UNTIL YOUR FOLLOW UP APPOINTMENT DIET INSTRUCTIONS: Regular with thin liquids. ACTIVITY: Plenty of rest the next few days HOSPITAL COURSE: 81 year old white male who presented to the office for second time in a week. Been recovering from Influenza A and was not improving. Two days prior was started on PO antibiotics and steroids. He was hypotensive, short of breath. We directed admitted him from the office. CT of the chest showed changes with COPD, no consolidation. He was started on Rocephin and Doxycycline IV along with normal saline and Solu-Cortef IV. Over the course of the next few days his condition has steadily improved. Initial ABG had pO2 in 60s, this morning he is 98% on room air. He has been eating well. He has nebulizer machine at home. We will discharge on PO Doxycycline, Prednisone and Keflex. He will followup in the office next week. TIME SPENT: More than 60 minutes. MTDD
--- NOTE | 2022-05-23 10:41 | HP ---
DATE OF SERVICE: 05/18/22 REASON FOR HOSPITALIZATION/HISTORY OF PRESENT ILLNESS: Recheck flu- Flu A 05/10/22. Nausea, coughing-worse more productive. More short of breath with exertion. Not eating much. PAST MEDICAL HISTORY: Hypothyroidism Dyslipidemia Hypertension B12 deficiency Esophageal stricture Pulmonary fibrosis Cancer prostate COPD Hyperglycemia PAST SURGICAL HISTORY: CABG's Right knee replacement Stents Hernia surgery x 2 REVIEW OF SYSTEMS: CONSTITUTIONAL: No fever, Fatigue. HEENT: Sinus drainage, no sore throat. RESPIRATORY: Cough-yellowish, no congestion. CARDIOVASCULAR: No atypical chest pain for coronary artery disease. No angina, CHF symptoms, palpitations. Shortness of breath. GASTROINTESTINAL: No melena or abdominal pain. No GERD. GENITOURINARY: No hematuria, no prostatism, no polyuria. [employer] ENGINEERING PROJECT MANAGER: No blackout, no dizziness, Headache, no double vision. MUSCULOSKELETAL: No osteoarthritis pain, no joint swelling. ENDOCRINE: No weight loss, no weight gain. SKIN: Not dry, no rash. PSYCHIATRIC: Not anxious, no depression, no suicidal thoughts, no homicidal thoughts. SOCIAL HISTORY: Marital Status: . Alcohol Usage: No. Tobacco Usage: No. FAMILY HISTORY: Father Mother Brother 1 Sister 1 MEDICATIONS: Lorazepam 1mg Metoprolol 100mg BID Levothyroxine 112mg Tamsulosin 0.4mg Amlodipine 10mg Atorvastatin 40mg Fenofibrate 160mg L-Lysine 500mg PO BID [place] 3 2000mg BID Vitamin C supplement 400 Iron 65mg BID Aspirin 81mg Q daily [place] 7.5mg TID Oxygen PRN Singular 10mg daily Flonase ALLERGIES: No known allergies. PHYSICAL EXAMINATION: V/S: Pulse 70, blood pressure 122/70, temperature 98. Oxygen saturation 93%. GENERAL APPEARANCE: Oriented times three. HEENT: Pale. Dry mucous membranes. NECK: No JVP, no bruits. RESPIRATORY: Decreased breath sounds. Bilateral expiratory wheezing. Rales left lower lobe. CARDIOVASCULAR: S1, S2, no S3, no murmur. No cyanosis, clubbing. No ascites. GI/ABDOMEN: No tenderness. Bowel sounds are active. EXTREMITIES: edema, pulses +1, equal. CIVIL ENGINEERING PROJECT MANAGER: Deep tendon reflexes, sensory, motor and gait all normal. RECTAL: 2018 Dr. Jorge/PROSTATE: 06/25 (0.06). ASSESSMENT: 1. Acute pneumonitis 2. Dehydration 3. Recent Flu A 4. Shortness of breath 5. Chronic hip pain 6. Chronic back pain 7. Allergic rhinitis 8. COVID pneumonia 07/25 9. 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 CKD 3 16. Hypothyroidism 17. B12 deficiency 18. Right TKR. Geovany 04/20 19. Cancer of prostate-Dr. Deleon 20. NM 1982 21. COPD 22.CAD 23. CABG 2000 24. Left hip-Oneal Loweel 25. Vitamin D deficiency 26. Ventral hernia 27. Hypertension 28. 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 Hyperglycemia 31. Mildly dilated aortic root PLAN: 1. Routine telemetry orders 2. CBC and CMP now and daily 3. ABG on room air now 4. CT chest with and without 5. U/A 6. Sputum culture 7. Blood culture times 2 8. Rocephin 1 gram IV daily 9. Doxycycline 100mg IV Q 12 hours 10.Solu-Cortef 125mg IV Q 8 hours 11. Phenergan with codeine syrupy PO one tsp Q 8 hours PRN 12. Regular diet 13. Albuterol NEBS TID scheduled 14. Pulmicort NEB 0.5 BID scheduled 15. Incentive spirometry 16. Normal saline IV 2 75cc an hour times 2 liters 17. Regular diet 18. O2 at 1-2 liters nasal canula. TIME SPENT: More than 70 minutes. MTDD
--- NOTE | 2022-05-23 14:38 | PN ---
DATE OF SERVICE: 05/20/22 SUBJECTIVE: 81 year old white male hospitalized with recent influenza A with shortness of breath and pneumonitis and dehydration with bronchitis. The patient's condition has improved. He is feeling better today. Appetite has improved. REVIEW OF SYSTEMS: CONSTITUTIONAL: No night sweats. No fatigue, malaise, lethargy. No fever or chills. HEENT: Eyes: No visual changes. No eye pain. No eye discharge. ENT: No runny nose. No epistaxis. No sinus pain. No sore throat. No odynophagia. No congestion. RESPIRATORY: No cough, no congestion. No hemoptysis. Still shortness of breath with exertion. CARDIOVASCULAR: No angina symptoms. No CHF symptoms. No atypical chest pain for CAD. No palpitations. No PND. No orthopnea. GASTROINTESTINAL: No abdominal pain. No nausea or vomiting. No diarrhea or constipation. No hematemesis. No hematochezia. GENITOURINARY: No urgency. No frequency. No dysuria. No hematuria. No obstructive symptoms. No discharge. No pain. No significant abnormal bleeding. MUSCULOSKELETAL: No musculoskeletal pain; no joint swelling. NEUROLOGICAL: No headache. No neck pain. No syncope. No seizures. No dizziness. PSYCHIATRIC: Not anxious. No depression. No suicidal thoughts. No homicidal thoughts. SKIN: No rash. No lesions. No wounds. ENDOCRINE: No unexplained weight loss. No weight gain. HEMATOLOGIC/LYMPHATIC: No anemia. No purpura. No petechiae. No prolonged or excessive bleeding. No palpable lymph nodes. PHYSICAL EXAMINATION: VITAL SIGNS: Temperature 97.9, pulse 77, respiratory rate 18, blood pressure 144/84 and pulse ox 98% on room air. HEENT: Head normocephalic, atraumatic. Eyes: Extraocular muscles are intact. Pupils are equal, round and reactive to light and accommodation. Ears: No lesions. Nose appeared normal. Throat: No exudate or erythema. NECK: Supple. No JVD, no carotid bruit. No lymphadenopathy or thyromegaly. LUNGS: Decreased breath sounds but Clear to auscultation. Percussion note normal. Chest symmetrical. HEART: S1, S2, no S3. No murmurs. No cyanosis or clubbing. No ascites. Pulses: Dorsalis pedis and posterior tibial pulses +1 to +2 bilaterally. ABDOMEN: Soft. Nontender. Bowel sounds active. No CVA tenderness. No mass felt. EXTREMITIES: No edema. Full range of motion of all extremities, equal. NEUROLOGIC: No focal deficit. Cranial nerves II through XII are grossly intact. No headache. No double vision. SKIN: Not dry. Intact. Turgor - normal. LYMPHATIC: No palpable lymph nodes/no lymphedema. MUSCULOSKELETAL: Normal joints with no swelling. Muscle tone is normal. LABS: hgb 14, hct 42, WBC 10,000 normal differential, creatinine 0.9, BUN 18, potassium4. glucose 137. ASSESSMENT: 1. Acute pneumonitis with acute bronchitis following influenza A seems to be improving 2. Dehydration seems to have subsided PLAN: 1. Continue steroids, NEBS, antibiotics. 2. The patient is encouraged to eat and be up and about 3. The patient's CT scan of the chest showed emphysema and few other things like atherosclerosis with no acute findings. TIME SPENT: More than 30 minutes. Plan and coordination of the patient's care discussed in the presence of nurse. MELISSA
--- NOTE | 2022-05-24 08:18 | PN ---
DATE OF SERVICE: 05/21/22 SUBJECTIVE: 81 year old white male hospitalized with dehydration, influenza A, pneumonitis, acute bronchitis with shortness of breath. The patient for the first time says that he is feeling a lot better. He is up and about still mild short of breath but not as before. REVIEW OF SYSTEMS: CONSTITUTIONAL: No night sweats. No fatigue, malaise, lethargy. No fever or chills. HEENT: Eyes: No visual changes. No eye pain. No eye discharge. ENT: No runny nose. No epistaxis. No sinus pain. No sore throat. No odynophagia. No congestion. RESPIRATORY: No cough, no congestion. No hemoptysis. No shortness of breath. CARDIOVASCULAR: No angina symptoms. No CHF symptoms. No atypical chest pain for CAD. No palpitations. No PND. No orthopnea. GASTROINTESTINAL: No abdominal pain. No nausea or vomiting. No diarrhea or constipation. No hematemesis. No hematochezia. Appetite has improved. GENITOURINARY: No urgency. No frequency. No dysuria. No hematuria. No obstructive symptoms. No discharge. No pain. No significant abnormal bleeding. MUSCULOSKELETAL: No musculoskeletal pain; no joint swelling. NEUROLOGICAL: No headache. No neck pain. No syncope. No seizures. No dizziness. PSYCHIATRIC: Not anxious. No depression. No suicidal thoughts. No homicidal thoughts. SKIN: No rash. No lesions. No wounds. ENDOCRINE: No unexplained weight loss. No weight gain. HEMATOLOGIC/LYMPHATIC: No anemia. No purpura. No petechiae. No prolonged or excessive bleeding. No palpable lymph nodes. PHYSICAL EXAMINATION: VITAL SIGNS: Temperature 97.1, pulse 72, respiratory rate 18, blood pressure 138/73 and pulse ox 98%. HEENT: Head normocephalic, atraumatic. Eyes: Extraocular muscles are intact. Pupils are equal, round and reactive to light and accommodation. Ears: No lesions. Nose appeared normal. Throat: No exudate or erythema. NECK: Supple. No JVD, no carotid bruit. No lymphadenopathy or thyromegaly. LUNGS: Decreased breath sounds but clear to auscultation. Percussion note normal. Chest symmetrical. HEART: S1, S2, no S3. No murmurs. No cyanosis or clubbing. No ascites. Pulses: Dorsalis pedis and posterior tibial pulses +1 to +2 bilaterally. ABDOMEN: Soft. Nontender. Bowel sounds active. No CVA tenderness. No mass felt. EXTREMITIES: No edema. Full range of motion of all extremities, equal. NEUROLOGIC: No focal deficit. Cranial nerves II through XII are grossly intact. No headache. No double vision. SKIN: Not dry. Intact. Turgor - normal. LYMPHATIC: No palpable lymph nodes/no lymphedema. MUSCULOSKELETAL: Normal joints with no swelling. Muscle tone is normal. LABS: Hgb 15, hct 46, WBC 13,000 normal differential, creatinine 1, BUN 21, potassium 3.7 ASSESSMENT: 1. Acute pneumonitis with acute bronchitis with status post influenza A 2. Acute dehydration seems to be all better PLAN: 1. Discontinue Telemetry 2. Discontinue Rocephin IM 3. Start Keflex 500mg TID daily 4. Prednisone 10mg PO twice a day 5. Echo done this morning which showed normal LV contractility, LVH, enlarged LA cavity, borderline enlarged aortic root, enlarge RV cavity. The patient explained about the CT scan findings which showed emphysema no other acute findings. CONDITION: Stable, improving. TIME SPENT: More than 30 minutes. Plan and coordination of the patient's care discussed in the presence of nurse. MELISSA
--- NOTE | 2022-05-24 09:56 | PN ---
DATE OF SERVICE: 05/22/22 SUBJECTIVE: The patient was seen and examined with the Nurse Practitioner today. The patient's condition has improved. He is feeling a lot better. Influenza, Pneumonitis and bronchitis practically has subsided. Cardiovascular status is stable. The patient is going to be discharge home on antibiotics, steroids. Condition is stable. The patient's discharge plan and summary was carried out with Nurse Practitioner. TIME SPENT: More than 30 minutes. Plan and coordination of the patient's care discussed in the presence of nurse. MELISSA
--- NOTE | 2022-05-24 09:56 | PN ---
ADMISSION DAY: Level 5 REST OF THEM: Intermediate FINAL DAY: D as in discharge. MTDD
--- NOTE | 2022-05-25 14:38 | PN ---
DATE OF SERVICE: 05/19/22 SUBJECTIVE: Patient was hospitalized with influenza A and acute bronchitis with pneumonitis with shortness of breath Patient's condition seems to be improved. His hydration has improved. He is coughing much less. REVIEW OF SYSTEMS: CONSTITUTIONAL: Weakness, coughing, appetite has improved. No night sweats. No fatigue, malaise, lethargy. No fever or chills. HEENT: Eyes: No visual changes. No eye pain. No eye discharge. ENT: No runny nose. No epistaxis. No sinus pain. No sore throat. No odynophagia. No congestion. RESPIRATORY: No cough, no congestion. No hemoptysis. No shortness of breath. CARDIOVASCULAR: No angina symptoms. No CHF symptoms. No atypical chest pain for CAD. No palpitations. No PND. No orthopnea. GASTROINTESTINAL: No abdominal pain. No nausea or vomiting. No diarrhea or constipation. No hematemesis. No hematochezia. GENITOURINARY: No urgency. No frequency. No dysuria. No hematuria. No obstructive symptoms. No discharge. No pain. No significant abnormal bleeding. MUSCULOSKELETAL: No musculoskeletal pain; no joint swelling. NEUROLOGICAL: No headache. No neck pain. No syncope. No seizures. No dizziness. PSYCHIATRIC: Not anxious. No depression. No suicidal thoughts. No homicidal thoughts. SKIN: No rash. No lesions. No wounds. ENDOCRINE: No unexplained weight loss. No weight gain. HEMATOLOGIC/LYMPHATIC: No anemia. No purpura. No petechiae. No prolonged or excessive bleeding. No palpable lymph nodes. PHYSICAL EXAMINATION: GENERAL: Oriented to time, place and person. VITAL SIGNS: Temperature 96.8, pulse 75, respiration rate 20, blood pressure 135/67, pulse ox 99% on room air. HEENT: Head normocephalic, atraumatic. Eyes: Extraocular muscles are intact. Pupils are equal, round and reactive to light and accommodation. Ears: No lesions. Nose appeared normal. Throat: No exudate or erythema. NECK: Supple. No JVD, no carotid bruit. No lymphadenopathy or thyromegaly. LUNGS: Clear to auscultation. Percussion note normal. Chest symmetrical. HEART: S1, S2, no S3. No murmurs. No cyanosis or clubbing. No ascites. Pulses: Dorsalis pedis and posterior tibial pulses +1 to +2 bilaterally. ABDOMEN: Soft. Nontender. Bowel sounds active. No CVA tenderness. No mass felt. EXTREMITIES: No edema. Full range of motion of all extremities, equal. NEUROLOGIC: No focal deficit. Cranial nerves II through XII are grossly intact. No headache. No double vision. SKIN: Not dry. Intact. Turgor - normal. LYMPHATIC: No palpable lymph nodes/no lymphedema. MUSCULOSKELETAL: Normal joints with no swelling. Muscle tone is normal. LABS: Albumin 14.6, hematocrit 44, WBC 7,500, normal differential, BUN 20, potassium 4.1 ASSESSMENT: 1. Pneumonitis, bronchitis with influenza A seems to be resolved PLAN: 1. Continue Doxycycline PO and Rocephin to be given IM 3. Patient is complaining of IV site pain 4. Discontinue IV fluids 5. His appetite is better 6. Patient is improving TIME SPENT: More than 30 minutes. Plan and coordination of the patient's care discussed in the presence of nurse. MELISSA
== END 2022-05-22 15:20 | disposition home or self-care (01) | DRG 197 ==
LOC: LAB 12:26 → MEDSURG A 13:34
PROVIDERS: ADMIT Internal Medicine; ATTEND Internal Medicine
DX: R53.83 Other fatigue; M54.9 Dorsalgia, unspecified; M25.559 Pain in unspecified hip; M51.36 Other intervertebral disc degeneration, lumbar region; I50.1 Left ventricular failure, unspecified; Z20.822 Contact with and (suspected) exposure to COVID-19; Z79.82 Long term (current) use of aspirin; Z86.16 Personal history of COVID-19; N18.30 Chronic kidney disease, stage 3 unspecified; J20.9 Acute bronchitis, unspecified; R73.9 Hyperglycemia, unspecified; J84.114 Acute interstitial pneumonitis; D51.9 Vitamin B12 deficiency anemia, unspecified; E03.9 Hypothyroidism, unspecified; E78.5 Hyperlipidemia, unspecified; J09.X2 Influenza due to identified novel influenza A virus with other respiratory manifestations; J30.9 Allergic rhinitis, unspecified; Z99.81 Dependence on supplemental oxygen; R06.02 Shortness of breath; Z79.899 Other long term (current) drug therapy; Z20.828 Contact with and (suspected) exposure to other viral communicable diseases; J84.10 Pulmonary fibrosis, unspecified; E86.0 Dehydration; Z51.81 Encounter for therapeutic drug level monitoring; I11.0 Hypertensive heart disease with heart failure; J44.9 Chronic obstructive pulmonary disease, unspecified